=== PATIENT | female | born 1970 | race African-American/Black ===

== ENCOUNTER 2020-08-04 12:04 | Day surgery (SDC) | payer OTHER, SELFPAY ==
--- NOTE | 2020-08-03 13:21 | P.CONAN_ITS ---
Documented by User: Heidi Busch 08/03/20 14:19 HPI - Anesthesia Eval Consult details Narrative: 49yo F for Colonoscopy [facility] Past Medical History Medical History Hyperlipidemia Hypertension Type II diabetes mellitus Surgical History Surgical History History of section Social History Social History Smoking Status: Never smoker Second Hand Smoke Exposure: No Use of substances other than those prescribed or required for medical reasons: No Advance Directives: No Advance Directives Information Provided: Yes Advance Directives on File: No Narrative Narrative: 2019 w/u for chest pain with negative stress and Echo. Meds Allergies Allergy/AdvReac Type Severity Reaction Status Date / Time No Known Allergies Allergy Unverified 06/25/20 17:25 Home Medications Medication Instructions Recorded Confirmed Type acetaminophen 650 mg PO Q4H PRN 08/03/20 08/03/20 History atorvastatin 1 tab PO DAILY 08/03/20 08/03/20 History cholecalciferol (vitamin D3) 1 cap PO DAILY 08/03/20 08/03/20 History [Vitamin D3] lancets [FreeStyle Lancets] 08/03/20 08/03/20 History losartan 25 mg PO DAILY 08/03/20 08/03/20 History phentermine 1 cap PO DAILY 08/03/20 08/03/20 History Exam Exam Date and Time: August 03, 2020 1321 Pertinent Lab Results Pertinent Lab Results: Laboratory Tests 06/09/20 06/09/20 11:17 11:17 WBC 7.4 Hgb 12.4 Hct 41.2 Plt Count 300 Sodium 144 Potassium 4.1 Chloride 107 BUN 16 Creatinine 0.84 Narrative Narrative: Echo 07/2019: Nml LV sys function, Gr 1 DD, Valves wnl, RV sys pressure was nml, no evidence of pericardial effusion. EKG 2019: SR@69 MIBI 07/2019: Nml perfusion, gated ef 70%, no transient ischemia dilation Documented by User: Silvia Wall 08/04/20 12:37 PMFSH Past Medical History Medical History Hyperlipidemia Hypertension Type II diabetes mellitus Surgical History Surgical History History of section Social History Social History Smoking Status: Never smoker Second Hand Smoke Exposure: No Use of substances other than those prescribed or required for medical reasons: No Advance Directives: No Advance Directives Information Provided: Yes Advance Directives on File: No Meds Allergies Allergy/AdvReac Type Severity Reaction Status Date / Time No Known Allergies Allergy Unverified 06/25/20 17:25 Home Medications Medication Instructions Recorded Confirmed Type acetaminophen 650 mg PO Q4H PRN 08/03/20 08/03/20 History atorvastatin 1 tab PO DAILY 08/03/20 08/03/20 History cholecalciferol (vitamin D3) 1 cap PO DAILY 08/03/20 08/03/20 History [Vitamin D3] lancets [FreeStyle Lancets] 08/03/20 08/03/20 History losartan 25 mg PO DAILY 08/03/20 08/03/20 History phentermine 1 cap PO DAILY 08/03/20 08/03/20 History Exam Airway Mallampati Class: I TM Dist: >3cm Neck ROM: Full Heart: RRR Lungs: CTA Assessment and Plan Assessment Anesthesia Assessment: Anesthesia Plan Discussed and Chart Reviewed Final Anesthetic Review NPO: Yes ASA Class: II Final Preanesthetic Review: Meds/Allgs Chart Reviewed, Consent Obtained/Reviewed and Anes Risks/Benef Reviewed Patient Risk: Intermediate Procedure Risk: Low Anesthetic Plan Anesthetic Plan: MAC: Disposition: Standard PACU
[2020-08-03 16:39] VITALS: BMI 39.0
--- NOTE | 2020-08-04 12:24 | MHC.SHP ---
Pre-Procedural Eval Section A The patient is an INPATIENT: No Changes since office visit: No Cold of Flu in the past 2 weeks, No New Medical Problems, No Changes in Medication and No Patient answered all questions The History & Physical has been completed within 30 days and I have reviewed it.: Yes Section B Chief Complaint: screening Allergies: Allergies Allergy/AdvReac Type Severity Reaction Status Date / Time No Known Allergies Allergy Unverified 06/25/20 17:25 Plan Patient has been examined and remains a candidate for the planned procedure
[2020-08-04 12:29] VITALS: BP 115/80; PULSE 99; RESP 16; TEMP 36.5; O2SAT 100
[2020-08-04] MEDS: Lactated Ringers 1,000 ML 100 ML IVCONT (12:43)
[2020-08-04 12:46] LABS: Glucose, Whole Blood 97 mg/dL (60-115)
[2020-08-04 13:10] VITALS: BP 109/68; PULSE 90; RESP 16; TEMP 36; O2SAT 99
--- NOTE | 2020-08-04 13:11 | PM.OP ---
Brief Operative Note Date of procedure: 08/04/20 Pre-op diagnosis: screening Post-op diagnosis: other (colon polyp) Procedure: colonoscopy Surgeon: Pablo Arreaga Anesthesia: MAC Estimated blood loss (mL): 1 Pathology: other (polyp 20 cm) Condition: stable Disposition: PACU
[2020-08-04 13:25] VITALS: BP 125/106; PULSE 90; RESP 16; O2SAT 99
[2020-08-04 13:37] VITALS: BP 127/92; PULSE 80; RESP 16; TEMP 36; O2SAT 99
--- NOTE | 2020-08-04 16:58 | OP_ITS ---
SURGEON: Pabol Arreaga MD INDICATIONS: Colon cancer screening. PREOPERATIVE DIAGNOSIS: POSTOPERATIVE DIAGNOSIS: PROCEDURE PERFORMED: Colonoscopy to the terminal ileum with biopsy. ESTIMATED BLOOD LOSS: COMPLICATIONS: ANESTHESIA: ASSISTANTS: SPECIMENS: MEDICATIONS: Monitored anesthesia care. DESCRIPTION OF PROCEDURE: History and physical performed. The risks and benefits of the procedure were explained to the patient. Informed consent was obtained. The patient was placed in the left lateral decubitus position. A digital rectal exam was performed and was found to be normal. The Olympus pediatric video colonoscope was introduced into the rectum and advanced to the cecum without difficulty. The cecum was identified by transillumination, palpation, and identification of ileocecal valve. Examination was performed and the scope was removed. She tolerated the procedure well and was taken to recovery area in stable condition. FINDINGS: The terminal ileum was normal. The visualized colonic mucosa was normal. The quality of prep was good. A single polyp in the sigmoid at 20 cm measuring less than 5 mm was removed with biopsy forceps. No other polyps were identified. Retroflexed examination showed small internal hemorrhoids. IMPRESSION: Colon polyp. RECOMMENDATION: Follow up the biopsy results. MD ANNABELLA Johnson/TOMMY / [id number]
== END 2020-08-04 14:41 | disposition home or self-care (01) ==
PROVIDERS: PCP Internal Medicine; Visit Provider Internal Medicine Gastroenterology
PROC: 0DJD8ZZ Inspection of Lower Intestinal Tract, Via Natural or Artificial Opening Endoscopic (ICD-10-PCS; CPT 45378; principal; 2020-08-04 13:00)
DX: Z12.11 Encounter for screening for malignant neoplasm of colon (principal); D12.5 Benign neoplasm of sigmoid colon; K64.8 Other hemorrhoids; I10 Essential (primary) hypertension; E11.9 Type 2 diabetes mellitus without complications; E78.5 Hyperlipidemia, unspecified; Z79.899 Other long term (current) drug therapy
CPT/HCPCS: 45380; 82947; 88305

== ENCOUNTER 2020-08-08 14:35 | Inpatient (IN) | payer OTHER, SELFPAY ==
[2020-08-08 15:01] VITALS: BP 142/102; PULSE 100; RESP 18; TEMP 36.4; O2SAT 99; BMI 37.2
[2020-08-08 15:05] VITALS: BP 142/102; PULSE 100; RESP 18; TEMP 36.4; O2SAT 99
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
[2020-08-08 15:58] LABS: MANUAL DIFF FLAG NO
[2020-08-08 15:59] LABS: Basophils Percent Auto 0.4 % (0-2); Eosinophils Absolute Auto 0.1 X10*3/uL (0.0-0.4); Eosinophils Percent Auto 0.7 % (0-4); Hematocrit 44.6 % (37-47); Hemoglobin 14.1 g/dl (12.0-16.0); Imm Gran Abs Auto 0.02 X10*3/uL (0.00-0.03); Imm Gran Pct Auto 0.2 % (0.0-0.4); Lymphocytes Percent Auto 36.2 % (20-40); Mean Corpuscular HGB Conc 31.6 g/dl (31.0-35.0); Mean Corpuscular Hemoglobin 25.7 pg (27.0-33.0); Mean Corpuscular Volume 81.2 fL (80-98); Mean Platelet Volume 9.2 fL (9.4-12.3); Monocytes Absolute Auto 0.6 X10*3/uL (0.1-1.2); Monocytes Percent Auto 5.5 % (2-11); Neutrophils Absolute Auto 6.3 X10*3/uL (2.0-8.3); Platelet Count 381 X10*3/uL (160-400); Red Blood Count 5.49 X10*6/uL (4.20-5.50); Red Cell Distribution Width 15.1 % (11.0-16.0); White Blood Count 11.1 X10*3/uL (4.8-10.8)
[2020-08-08 16:23] LABS: Anion Gap 17 (12-20); Blood Urea Nitrogen 7 mg/dL (9-16); Calcium 9.9 mg/dL (8.4-10.2); Carbon Dioxide 27 mmol/L (22-29); Chloride 99 mmol/L (96-108); Estimated Glomerular Filt Rate 51; Glucose Random 109 mg/dL (60-115); Potassium 4.2 mmol/l (3.3-5.1); Sodium 139 mmol/L (135-145)
--- NOTE | 2020-08-08 16:40 | PC.NURSE ---
MICHELLE faxed and called.
[2020-08-08 17:20] LABS: Amphetamine Screen Urine Not Detected (Not Detect); Barbiturates, Urine Not Detected (Not Detect); Benzodiazepines Screen Urine Not Detected (Not Detect); Cannabinoid Screen Urine Not Detected (Not Detect); Cocaine Screen Urine Not Detected (Not Detect); Opiate Screen Urine Not Detected (Not Detect); Phencyclidine Screen Urine Not Detected (Not Detect)
--- NOTE | 2020-08-08 19:02 | PC.NURSE ---
Report received. Pt currently sitting in chair in room. Calm, cooperative. No complaints at this time.
--- NOTE | 2020-08-08 20:51 | PC.NURSE ---
Pt notified by N that she will be a section 12 bed search. Tearful, upset. Currently getting phone numbers from her phone to make phone calls.
--- NOTE | 2020-08-08 23:12 | PC.NURSE ---
change of shift report received from Isidra Zuniga. pt is in her room visible on the monitor.
[2020-08-08 23:19] VITALS: BP 104/65; PULSE 75; RESP 16; TEMP 36.9; O2SAT 100
--- NOTE | 2020-08-08 23:50 | PC.NURSE ---
PT STATES SHE IS NOT S1 OR H1 AT THIS TIME. PT STATES FOR 2 WEEKS SHE HAS NOT BEEN FEELING WELL AND SINCE MONDAY LACK OF SLEEP AND NUTRITION. PT AT THIS TIME DENIES S1 OR H1. PT IS IN HER ROOM TRYING TO FALL ASLEEP. NEEDS AT BEDSIDE. SKIN WARM AND DRY. PT IS A DIABETIC TYPE 2.
--- NOTE | 2020-08-09 01:40 | PC.NURSE ---
pt awake steady gait. pt in the shower. pt is ao calm and cooperative.
[2020-08-09 06:29] VITALS: BP 101/67; PULSE 85; RESP 16; TEMP 36.3; O2SAT 100
--- NOTE | 2020-08-09 06:59 | PC.NURSE ---
Report received. PT sleeping, respirations even and unlabored, in no apparent distress. Pt is inpatient bedsearch.
[2020-08-09 07:58] LABS: Glucose, Whole Blood 73 mg/dL (60-115)
[2020-08-09 08:52] VITALS: BP 99/72; PULSE 84; RESP 18; TEMP 36.2; O2SAT 99
--- NOTE | 2020-08-09 08:56 | PC.NURSE ---
Pt refusing morning medication at this time, states I haven't eaten since monday, I don't want my sugar to get too low Medication education provided, pt continues to decline.
[2020-08-09] MEDS: Acetaminophen 325 MG TABLET 650 MG PO (14:06)
[2020-08-09 14:17] VITALS: BP 94/64; PULSE 89; TEMP 36.4; O2SAT 100
--- NOTE | 2020-08-09 16:03 | PC.NURSE ---
PT resting, asked when she will be able to leave. Pt denies SI/HI at this time, states she was just overwhelmed and sitting here is not helping with her neighbors. Plan of care explained. Pt understanding.
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
[2020-08-09 21:02] LABS: Glucose, Whole Blood 86 mg/dL (60-115)
--- NOTE | 2020-08-09 23:25 | PC.NURSE ---
Contacted [facility] for PT to be seen for MSU. [facility] stated they would try to get someone here tonight or tomorrow morning.
--- NOTE | 2020-08-10 05:53 | PC.NURSE ---
PT asking when she will be seen by N. Upset and crying because she will be missing her job interview this morning at 0900. Nurse to call N to get status on MSU.
--- NOTE | 2020-08-10 07:18 | PC.NURSE ---
Report received from Sulaiman rn- pt awake, adamantly denies SI, states it was an impulsive act and that she woulkd like to return home.
[2020-08-10 09:22] VITALS: BP 112/71; PULSE 90; RESP 17; TEMP 36.6; O2SAT 98
[2020-08-10] MEDS: Atorvastatin Calcium 10 MG TABLET PO (09:30)
--- NOTE | 2020-08-10 10:02 | PC.NURSE ---
Pt declined metformin, stating that she is attempting to control blood sugar w/ diet. A Ellyn aware. Reviewed vitals w/ A Ellyn- metolprolol and diovan held as ordered.
[2020-08-10 10:03] VITALS: BP 112/71; PULSE 90
[2020-08-10 10:04] VITALS: BP 112/71; PULSE 90
--- NOTE | 2020-08-10 13:17 | PC.NURSE ---
report given to CHRISTOS Moser
[2020-08-10 14:32] LABS: SARS COV2 PCR INHOUSE NEGATIVE (Negative)
[2020-08-10 16:22] VITALS: BP 110/77; PULSE 100; RESP 20; TEMP 36.8; O2SAT 99
[2020-08-10] MEDS: Magnesium Hydrox/Alum Hydrox 30 ML ORAL.SUSP PO (18:50)
--- NOTE | 2020-08-10 19:03 | PC.NURSE ---
Care team in to transfer pt to M5.
--- NOTE | 2020-08-10 19:31 | MHC.CARE ---
CARE team met with patient in [facility] to facilitate transfer/admission to . Patient is being admitted voluntarily and signed CV. Patient expressed feeling it was unfair and unjust that she could not wait to complete the CV until after she was on M5 (and in particular, that the alternative would be transferring with a section 12). CARE team did explain that if patient were to be admitted with a 12 that she would still be given the opportunity to review and potentially complete a CV. Patient asked to consult with a loved one before signing and called her friend but they did not rock picker and she left a message. Ultimately patient chose to sign CV after reviewing verbally with CARE team and reading the document in full, but wants to talk to her friend about it as soon as they call her back. Would like the opportunity to speak more about the process with someone, and is upset about how she has been treated the past few days. Reports she gave permission for [facility] to speak to one person but they called more family members. Reports distress that people are making decisions about her without involving her. Talked about history of discrimination for the past 18 years that she has been in this country, and gave examples. Patient was upset that a [employer] security consultant was used to bring her from ED to , and wanted to walk. CARE team explained the escort process and that it is for her safety, as well as being standard for every patient and not based on any particular concerns about her specifically. Patient did cooperate with transfer but was tearful.
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
[2020-08-11 06:05] VITALS: BP 121/78; PULSE 91; RESP 18; TEMP 36.2
[2020-08-11 08:14] LABS: Glucose, Whole Blood 107 mg/dL (60-115)
[2020-08-11 08:18] LABS: Estimated Average Glucose 134 mg/dL; Hemoglobin A1c % 6.3 %
[2020-08-11 08:40] LABS: Cholesterol 182 mg/dL; HDL Cholesterol 53 mg/dL; LDL Cholesterol Calculated 116 mg/dl; Triglycerides 66 mg/dL
[2020-08-11] MEDS: Milk of Magnesia 30 ML ORAL.SUSP PO (14:19)
[2020-08-11 17:39] LABS: Glucose, Whole Blood 116 mg/dL (60-115)
[2020-08-11 18:00] VITALS: BP 121/65; PULSE 85; TEMP 36.2
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
[2020-08-12 05:30] VITALS: BP 106/51; PULSE 83; RESP 16; TEMP 36.9
[2020-08-12 06:26] LABS: Glucose, Whole Blood 86 mg/dL (60-115)
[2020-08-12] MEDS: Magnesium Hydrox/Alum Hydrox 30 ML ORAL.SUSP PO (11:38)
[2020-08-12 18:00] VITALS: BP 115/58; PULSE 92; TEMP 36.6
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
[2020-08-13 06:12] VITALS: BP 110/55; PULSE 83; RESP 18; TEMP 36.6; O2SAT 98
[2020-08-13 06:23] LABS: Glucose, Whole Blood 100 mg/dL (60-115)
[2020-08-13] MEDS: Sertraline HCL 25 MG TABLET PO (10:15)
[2020-08-13] MEDS: Flu Vacc QS2020-21(6mos up)/PF 0.5 ML SYRINGE IM (13:21)
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
== END 2020-08-13 13:40 | disposition home or self-care (01) | DRG 755 ==
LOC: HO.ED 08-10 16:42 → HO.PM5 08-10 18:27
PROVIDERS: Nurse Practitioner Family; Physician Assistant Medical; Admitting Provider Psychiatry & Neurology Psychiatry; Emergency Provider Emergency Medicine; Visit Provider Psychiatry & Neurology Psychiatry
DX: F43.10 Post-traumatic stress disorder, unspecified (principal); R45.851 Suicidal ideations; E11.9 Type 2 diabetes mellitus without complications; E78.5 Hyperlipidemia, unspecified; Z23 Encounter for immunization; Z20.828 Contact with and (suspected) exposure to other viral communicable diseases; Z91.5 Personal history of self-harm; Z79.84 Long term (current) use of oral hypoglycemic drugs; Z79.899 Other long term (current) drug therapy
CPT/HCPCS: 36415; 80048; 80061; 80307; 82947; 83036; 85025; 90686; 90792; 99232; 99239; 99285; U0003

== ENCOUNTER 2020-08-31 11:12 | Outpatient (REF) | payer OTHER, SELFPAY ==
--- NOTE | 2020-08-31 11:16 | MM_ITS ---
EXAMINATION: MM SCREENING DIGITAL BREAST TOMOSYNTHESIS, BILATERAL CLINICAL INFORMATION: Screening. Asymptomatic. The lifetime risk of breast cancer based on the Tyrer-Cuzick Model is 14%. COMPARISON: Mammography: None available TECHNIQUE: Digital breast tomosynthesis is performed in both the craniocaudal and mediolateral oblique views along with computer-aided detection (CAD). Synthesized 2D images are generated from the tomosynthesis. FINDINGS: There are scattered areas of fibroglandular density (ACR BI-RADS breast composition Category b). There are no significant masses, abnormal calcifications, or other abnormalities. MM/MM tomosynthesis screening BI IMPRESSION: No mammographic evidence of malignancy. ASSESSMENT: BI-RADS 1: Negative RECOMMENDATION: Routine annual mammography screening. This patient's information was entered into a reminder system with a target due date for their next mammogram.
== END 2020-08-31 11:13 | disposition home or self-care (01) ==
LOC: HO.MAMMO 11:12
PROVIDERS: PCP Internal Medicine; Visit Provider Internal Medicine
DX: Z12.31 Encounter for screening mammogram for malignant neoplasm of breast (principal)
CPT/HCPCS: 77063; 77067

== ENCOUNTER → 2020-09-23 09:19 | Outpatient (BNVA) | payer OTHER, SELFPAY | PROVIDERS: Visit Provider Student in an Organized Health Care Education/Training Program | DX: G56.03 Carpal tunnel syndrome, bilateral upper limbs (principal) | CPT/HCPCS: 99202 ==

== ENCOUNTER 2020-09-25 16:42 | Outpatient (REF) | payer OTHER, SELFPAY | END 2020-09-25 16:43 | disposition home or self-care (01) | LOC: HO.LAB 16:42 | PROVIDERS: Physician Assistant Medical; Visit Provider Internal Medicine | DX: Z20.828 Contact with and (suspected) exposure to other viral communicable diseases (principal) | CPT/HCPCS: U0003 ==

== ENCOUNTER → 2020-10-20 12:39 | Outpatient (BNVA) | payer OTHER, SELFPAY | PROVIDERS: PCP Internal Medicine; Visit Provider Orthopaedic Surgery | DX: M18.12 Unilateral primary osteoarthritis of first carpometacarpal joint, left hand (principal); R20.0 Anesthesia of skin; R20.2 Paresthesia of skin | CPT/HCPCS: 20605; 99202; J1020; J1100 ==

== ENCOUNTER 2021-03-24 12:19 | Outpatient (REF) | payer OTHER, SELFPAY | END 2021-03-24 12:20 | disposition home or self-care (01) | LOC: HO.LAB 12:19 | PROVIDERS: PCP Internal Medicine; Visit Provider Internal Medicine | DX: Z20.822 Contact with and (suspected) exposure to COVID-19 (principal) | CPT/HCPCS: C9803; U0003; U0005 ==

== ENCOUNTER 2021-07-06 07:41 | Outpatient (REF) | payer OTHER, SELFPAY ==
[2021-07-06 08:46] LABS: MANUAL DIFF FLAG NO
[2021-07-06 08:52] LABS: Basophils Percent Auto 0.4 % (0-2); Eosinophils Absolute Auto 0.2 X10*3/uL (0.0-0.4); Eosinophils Percent Auto 2.5 % (0-4); Hematocrit 40.3 % (37-47); Hemoglobin 12.7 g/dl (12.0-16.0); Imm Gran Abs Auto 0.02 X10*3/uL (0.00-0.03); Imm Gran Pct Auto 0.3 % (0.0-0.4); Lymphocytes Absolute Auto 3.3 X10*3/uL (1.2-4.9); Lymphocytes Percent Auto 41.9 % (20-40); Mean Corpuscular HGB Conc 31.5 g/dl (31.0-35.0); Mean Corpuscular Hemoglobin 25.6 pg (27.0-33.0); Mean Corpuscular Volume 81.3 fL (80-98); Monocytes Absolute Auto 0.5 X10*3/uL (0.1-1.2); Monocytes Percent Auto 6.3 % (2-11); Neutrophils Absolute Auto 3.8 X10*3/uL (2.0-8.3); Neutrophils Percent Auto 48.6 % (45-73); Platelet Count 281 X10*3/uL (160-400); Red Blood Count 4.96 X10*6/uL (4.20-5.50); Red Cell Distribution Width 16.1 % (11.0-16.0); White Blood Count 7.9 X10*3/uL (4.8-10.8)
[2021-07-06 09:16] LABS: Estimated Average Glucose 126 mg/dL
[2021-07-06 09:26] LABS: Alanine Aminotransferase 18 U/L (0-31); Albumin Level 3.9 g/dL (3.5-5.0); Alkaline Phosphatase 90 U/L (39-117); Anion Gap 12 (12-20); Aspartate Amino Transferase 16 U/L (5-31); Bilirubin Total 0.4 mg/dL (0.0-1.0); Blood Urea Nitrogen 11 mg/dL (9-16); Calcium 9.3 mg/dL (8.4-10.2); Carbon Dioxide 24 mmol/L (22-29); Chloride 108 mmol/L (96-108); Cholesterol 220 mg/dL; Estimated Glomerular Filt Rate > 60; Glucose Random 103 mg/dL (60-115); HDL Cholesterol 74 mg/dL; LDL Cholesterol Calculated 137 mg/dl; Potassium 4.2 mmol/L (3.3-5.1); Sodium 140 mmol/L (135-145); Total Protein 6.9 g/dL (6.5-8.0); Triglycerides 48 mg/dL
[2021-07-06 09:31] LABS: Creatinine Urine 194.57 mg/dL; Microalbum/Creatinine Ratio Ur 3.5 ug/mg cr
== END 2021-07-06 07:42 | disposition home or self-care (01) ==
LOC: HO.LAB 07:41
PROVIDERS: PCP Internal Medicine; Visit Provider Internal Medicine
DX: E11.9 Type 2 diabetes mellitus without complications (principal); E78.00 Pure hypercholesterolemia, unspecified; I10 Essential (primary) hypertension; G56.01 Carpal tunnel syndrome, right upper limb
CPT/HCPCS: 36415; 80053; 80061; 82043; 83036; 84443; 85025

== ENCOUNTER 2021-07-07 09:00 | Outpatient (REF) | payer OTHER, SELFPAY ==
[2021-07-07 10:17] LABS: Estimated Average Glucose 128 mg/dL; Hemoglobin A1c % 6.1 %
[2021-07-07 10:56] LABS: Alanine Aminotransferase 18 U/L (0-31); Alkaline Phosphatase 89 U/L (39-117); Anion Gap 10 (12-20); Aspartate Amino Transferase 16 U/L (5-31); Bilirubin Total 0.2 mg/dL (0.0-1.0); Blood Urea Nitrogen 12 mg/dL (9-16); Calcium 9.4 mg/dL (8.4-10.2); Carbon Dioxide 28 mmol/L (22-29); Chloride 107 mmol/L (96-108); Cholesterol 218 mg/dL; Estimated Glomerular Filt Rate > 60; Glucose Random 90 mg/dL (60-115); HDL Cholesterol 69 mg/dL; LDL Cholesterol Calculated 137 mg/dl; Potassium 4.7 mmol/L (3.3-5.1); Sodium 140 mmol/L (135-145); Triglycerides 61 mg/dL
[2021-07-07 11:10] LABS: HBS Num1 113.76 mIU/mL (0-7.99); ~Hepatitis B Surface Antibody REACTIVE (Nonreactive)
[2021-07-10 13:31] LABS: TS Negative Control Passed; TS Panel A 38; TS Panel B 46; TS Positive Control Passed; TSpotTB POSITIVE (SeeBelow)
== END 2021-07-07 09:01 | disposition home or self-care (01) ==
LOC: HO.LAB 09:00
PROVIDERS: PCP Internal Medicine; Visit Provider Internal Medicine
DX: Z00.00 Encounter for general adult medical examination without abnormal findings (principal); E11.9 Type 2 diabetes mellitus without complications; E78.00 Pure hypercholesterolemia, unspecified; I10 Essential (primary) hypertension
CPT/HCPCS: 36415; 80053; 80061; 83036; 86481; 86706

== ENCOUNTER 2021-10-05 16:08 | Outpatient (REF) | payer OTHER, SELFPAY ==
--- NOTE | ~2021-10-05 | MM_ITS ---
EXAMINATION: MM SCREENING DIGITAL BREAST TOMOSYNTHESIS, BILATERAL CLINICAL INFORMATION: Screening. Asymptomatic. The lifetime risk of breast cancer based on the Tyrer-Cuzick Model is 17%. COMPARISON: Mammography: 08/31/2020; Outside mammography 12/27/2018, 10/17/2016 ([facility]). TECHNIQUE: Digital breast tomosynthesis is performed in both the craniocaudal and mediolateral oblique views along with computer-aided detection (CAD). Synthesized 2D images are generated from the tomosynthesis. Additional bilateral CC views are provided. FINDINGS: There are scattered areas of fibroglandular density (ACR BI-RADS breast composition Category b). There are no significant masses, abnormal calcifications, or other abnormalities. Breast tissue composition borders on predominantly fatty. Background stromal and fibroglandular densities are stable. The axilla and skin contours are unremarkable. No significant changes. MM/MM tomosynthesis screening BI IMPRESSION: No mammographic evidence of malignancy. ASSESSMENT: BI-RADS 1: Negative RECOMMENDATION: Routine annual mammography screening. This patient's information was entered into a reminder system with a target due date for their next mammogram.
== END 2021-10-05 16:09 | disposition home or self-care (01) ==
LOC: HO.MAMMO 16:08
PROVIDERS: Visit Provider Internal Medicine
DX: Z12.31 Encounter for screening mammogram for malignant neoplasm of breast (principal)
CPT/HCPCS: 77063; 77067

== ENCOUNTER 2022-01-19 08:09 | Outpatient (REF) | payer OTHER, SELFPAY ==
[2022-01-19 08:53] LABS: Estimated Average Glucose 137 mg/dL; Hemoglobin A1c % 6.4 %
[2022-01-19 09:26] LABS: Alanine Aminotransferase 21 U/L (0-31); Albumin Level 3.8 g/dL (3.5-5.0); Alkaline Phosphatase 91 U/L (39-117); Anion Gap 10 (12-20); Aspartate Amino Transferase 18 U/L (5-31); Bilirubin Total 0.2 mg/dL (0.0-1.0); Blood Urea Nitrogen 13 mg/dL (9-16); Calcium 9.8 mg/dL (8.4-10.2); Carbon Dioxide 29 mmol/L (22-29); Chloride 108 mmol/L (96-108); Cholesterol 192 mg/dL; Estimated Glomerular Filt Rate > 60; Glucose Random 117 mg/dL (60-115); HDL Cholesterol 55 mg/dL; LDL Cholesterol Calculated 128 mg/dl; Potassium 4.9 mmol/L (3.3-5.1); Sodium 142 mmol/L (135-145); Total Protein 7.1 g/dL (6.5-8.0); Triglycerides 47 mg/dL
== END 2022-01-19 08:10 | disposition home or self-care (01) ==
LOC: HO.LAB 08:09
PROVIDERS: PCP Internal Medicine; Visit Provider Internal Medicine
DX: E11.9 Type 2 diabetes mellitus without complications (principal); E78.00 Pure hypercholesterolemia, unspecified; I10 Essential (primary) hypertension; K21.9 Gastro-esophageal reflux disease without esophagitis
CPT/HCPCS: 36415; 80053; 80061; 83036

== ENCOUNTER 2022-03-08 15:54 | Outpatient (REF) | payer OTHER, SELFPAY ==
--- NOTE | ~2022-03-08 | XR_ITS ---
EXAMINATION: XR FOOT, LEFT CLINICAL INFORMATION: Pain. COMPARISON: No similar priors. TECHNIQUE: AP, lateral, and oblique views of the left foot. FINDINGS: No acute fracture or malalignment. Mild multifocal degenerative osteoarthritis in the hind and mid foot. No erosions or chondrocalcinosis. Small calcaneus spurs. Diffuse soft tissue swelling. XR/XR foot LT min 3V IMPRESSION: No acute osseous abnormalities. Mild multifocal degenerative osteoarthritis. Nonspecific diffuse soft tissue swelling.
[2022-03-08 16:15] LABS: MANUAL DIFF FLAG NO
[2022-03-08 17:18] LABS: Basophils Percent Auto 0.4 % (0-2); Eosinophils Absolute Auto 0.2 X10*3/uL (0.0-0.4); Hematocrit 38.7 % (37.0-47.0); Hemoglobin 11.7 g/dl (12.0-16.0); Imm Gran Abs Auto 0.01 X10*3/uL (0.00-0.03); Imm Gran Pct Auto 0.1 % (0.0-0.4); Lymphocytes Absolute Auto 4.5 X10*3/uL (1.2-4.9); Mean Corpuscular HGB Conc 30.2 g/dl (31.0-35.0); Mean Corpuscular Hemoglobin 24.9 pg (27.0-33.0); Mean Corpuscular Volume 82.5 fL (80.0-98.0); Mean Platelet Volume 9.9 fL (9.4-12.3); Monocytes Absolute Auto 0.6 X10*3/uL (0.1-1.2); Monocytes Percent Auto 6.2 % (2-11); Neutrophils Absolute Auto 3.9 x10*3/uL (2.0-8.3); Neutrophils Percent Auto 42.3 % (45-73); Platelet Count 266 X10*3/uL (160-400); Red Blood Count 4.69 X10*6/uL (4.20-5.50); Red Cell Distribution Width 15.9 % (11.0-16.0); White Blood Count 9.1 X10*3/uL (4.8-10.8)
[2022-03-08 17:49] LABS: Alanine Aminotransferase 16 U/L (0-31); Albumin Level 3.7 g/dL (3.5-5.0); Alkaline Phosphatase 81 U/L (39-117); Anion Gap 9 (12-20); Aspartate Amino Transferase 16 U/L (5-31); Bilirubin Total 0.3 mg/dL (0.0-1.0); Blood Urea Nitrogen 10 mg/dL (9-16); Calcium 9.4 mg/dL (8.4-10.2); Carbon Dioxide 26 mmol/L (22-29); Chloride 106 mmol/L (96-108); Estimated Glomerular Filt Rate > 60; Glucose Random 78 mg/dL (60-115); Potassium 3.9 mmol/L (3.3-5.1); Sodium 137 mmol/L (135-145); Total Protein 6.8 g/dL (6.5-8.0)
[2022-03-08 17:55] LABS: Estimated Average Glucose 134 mg/dL; Hemoglobin A1c % 6.3 %
[2022-03-08 18:16] LABS: Creatinine Urine 31.85 mg/dL; Microalbumin Urine < 5.0 mg/L
== END 2022-03-08 15:55 | disposition home or self-care (01) ==
LOC: HO.LAB 15:54
PROVIDERS: PCP Internal Medicine; Visit Provider Internal Medicine
DX: M25.572 Pain in left ankle and joints of left foot (principal); E11.9 Type 2 diabetes mellitus without complications; I10 Essential (primary) hypertension; R05.9 Cough, unspecified; R07.89 Other chest pain
CPT/HCPCS: 36415; 73630; 80053; 82043; 83036; 85025

== ENCOUNTER 2022-07-13 14:52 | Outpatient (REF) | payer OTHER, SELFPAY ==
[2022-07-13 16:19] LABS: Estimated Average Glucose 137 mg/dL; Hemoglobin A1c % 6.4 %
[2022-07-13 16:33] LABS: Alanine Aminotransferase 23 U/L (0-31); Albumin Level 4.1 g/dL (3.5-5.0); Alkaline Phosphatase 102 U/L (39-117); Anion Gap 17 (12-20); Aspartate Amino Transferase 15 U/L (5-31); Bilirubin Total < 0.2 mg/dL (0.0-1.0); Blood Urea Nitrogen 15 mg/dL (9-16); Calcium 9.3 mg/dL (8.4-10.2); Carbon Dioxide 25 mmol/L (22-29); Chloride 105 mmol/L (96-108); Cholesterol 205 mg/dL; Estimated Glomerular Filt Rate > 60; Glucose Random 88 mg/dL (60-115); HDL Cholesterol 61 mg/dL; LDL Cholesterol Calculated 134 mg/dl; Potassium 4.6 mmol/L (3.3-5.1); Sodium 142 mmol/L (135-145); Total Protein 7.2 g/dL (6.5-8.0); Triglycerides 53 mg/dL
== END 2022-07-13 14:53 | disposition home or self-care (01) ==
LOC: HO.LAB 14:52
PROVIDERS: PCP Internal Medicine; Visit Provider Internal Medicine
DX: Z00.00 Encounter for general adult medical examination without abnormal findings (principal); I10 Essential (primary) hypertension; E78.00 Pure hypercholesterolemia, unspecified; E11.9 Type 2 diabetes mellitus without complications
CPT/HCPCS: 36415; 80053; 80061; 83036

== ENCOUNTER 2022-08-15 10:44 | Outpatient (REF) | payer OTHER, SELFPAY ==
--- NOTE | ~2022-08-15 | XR_ITS ---
EXAMINATION: XR HAND, LEFT CLINICAL INFORMATION: Pain. COMPARISON: None TECHNIQUE: PA, lateral, and oblique views of the left hand. FINDINGS: No displaced fractures or subluxation. There is mild to moderate joint space narrowing with subcortical sclerosis on the first carpometacarpal joint. There is a well-corticated 2 mm portions fragment along the ulnar surface of the fourth DIP joint, likely an enthesophyte or sequela of a prior avulsion injury. No significant soft tissue abnormality. XR/XR hand LT min 3V IMPRESSION: 1. No acute fractures or subluxation. 2. Mild to moderate degenerative osteoarthritis of the first carpometacarpal joint. 3. A 2 mm osseous fragment adjacent to the ulnar surface of the fourth DIP joint, likely a degenerative enthesophyte or sequela of a prior avulsion injury. Correlate with point tenderness.
== END 2022-08-15 10:45 | disposition home or self-care (01) ==
LOC: HO.HOSX 10:44
PROVIDERS: Visit Provider Orthopaedic Surgery
DX: M79.642 Pain in left hand (principal)
CPT/HCPCS: 73130

== ENCOUNTER → 2022-08-16 08:54 | Outpatient (BNVA) | payer OTHER, SELFPAY | PROVIDERS: PCP Internal Medicine; Visit Provider Orthopaedic Surgery | DX: M18.12 Unilateral primary osteoarthritis of first carpometacarpal joint, left hand (principal); R20.0 Anesthesia of skin; R20.2 Paresthesia of skin | CPT/HCPCS: 99212; J1020 ==

== ENCOUNTER 2022-10-12 14:32 | Outpatient (REF) | payer OTHER, SELFPAY ==
--- NOTE | 2022-10-12 09:15 | EMG_ITS ---
Please see scanned EMG / Nerve Conduction Report. MTDD
== END 2022-10-12 14:33 | disposition home or self-care (01) ==
LOC: HO.NEURO 14:32
PROVIDERS: PCP Internal Medicine; Visit Provider Orthopaedic Surgery
DX: R20.0 Anesthesia of skin (principal); R20.2 Paresthesia of skin
CPT/HCPCS: 95885; 95913

== ENCOUNTER 2022-11-01 08:42 | Outpatient (REF) | payer OTHER, SELFPAY ==
[2022-11-01 10:02] LABS: Estimated Average Glucose 137 mg/dL; Hemoglobin A1c % 6.4 %
[2022-11-01 10:27] LABS: Alanine Aminotransferase 24 U/L (0-31); Albumin Level 3.8 g/dL (3.5-5.0); Alkaline Phosphatase 93 U/L (39-117); Anion Gap 13 (12-20); Aspartate Amino Transferase 21 U/L (5-31); Bilirubin Total 0.3 mg/dL (0.0-1.0); Blood Urea Nitrogen 15 mg/dL (9-16); Calcium 9.3 mg/dL (8.4-10.2); Carbon Dioxide 26 mmol/L (22-29); Chloride 106 mmol/L (96-108); Cholesterol 214 mg/dL; Estimated Glomerular Filt Rate > 60; Glucose Random 104 mg/dL (60-115); HDL Cholesterol 65 mg/dL; LDL Cholesterol Calculated 138 mg/dl; Potassium 4.4 mmol/L (3.3-5.1); Sodium 141 mmol/L (135-145); Total Protein 6.8 g/dL (6.5-8.0); Triglycerides 58 mg/dL
== END 2022-11-01 08:43 | disposition home or self-care (01) ==
LOC: HO.LAB 08:42
PROVIDERS: PCP Internal Medicine; Visit Provider Internal Medicine
DX: Z00.00 Encounter for general adult medical examination without abnormal findings (principal); E78.00 Pure hypercholesterolemia, unspecified; E11.9 Type 2 diabetes mellitus without complications; I10 Essential (primary) hypertension
CPT/HCPCS: 36415; 80053; 80061; 83036

== ENCOUNTER 2023-02-28 07:38 | Outpatient (REF) | payer OTHER, SELFPAY ==
[2023-02-28 08:34] LABS: Estimated Average Glucose 140 mg/dL; Hemoglobin A1c % 6.5 %
[2023-02-28 08:53] LABS: Alanine Aminotransferase 22 U/L (0-31); Albumin Level 3.8 g/dL (3.5-5.0); Alkaline Phosphatase 90 U/L (39-117); Anion Gap 12 (12-20); Aspartate Amino Transferase 17 U/L (5-31); Bilirubin Total 0.6 mg/dL (0.0-1.0); Blood Urea Nitrogen 12 mg/dL (9-16); Calcium 9.3 mg/dL (8.4-10.2); Carbon Dioxide 27 mmol/L (22-29); Chloride 105 mmol/L (96-108); Cholesterol 145 mg/dL; Estimated Glomerular Filt Rate > 60; Glucose Random 113 mg/dL (60-115); HDL Cholesterol 56 mg/dL; LDL Cholesterol Calculated 77 mg/dl; Potassium 3.9 mmol/L (3.3-5.1); Sodium 140 mmol/L (135-145); Total Protein 6.7 g/dL (6.5-8.0); Triglycerides 61 mg/dL
== END 2023-02-28 07:39 | disposition home or self-care (01) ==
LOC: HO.LAB 07:38
PROVIDERS: PCP Internal Medicine; Visit Provider Internal Medicine
DX: E11.9 Type 2 diabetes mellitus without complications (principal); E78.00 Pure hypercholesterolemia, unspecified; I10 Essential (primary) hypertension; M51.16 Intervertebral disc disorders with radiculopathy, lumbar region; Z91.148 Patient's other noncompliance with medication regimen for other reason
CPT/HCPCS: 36415; 80053; 80061; 83036

== ENCOUNTER 2023-04-28 10:31 | Emergency (ER) | payer OTHER, SELFPAY ==
--- NOTE | ~2023-04-28 | XR_ITS ---
EXAMINATION: XR ANKLE, LEFT CLINICAL INFORMATION: Pain. Fall. COMPARISON: Left foot x-ray February 2022 TECHNIQUE: AP, lateral, and mortise views of the left ankle. FINDINGS: Bone alignment is normal. No fracture or dislocation. Normal ankle mortise. Probable accessory ossicle adjacent to the cuboid bone similar to previous left foot x-ray. Calcaneal spurs. Lateral soft tissue swelling. XR/XR ankle LT min 3V IMPRESSION: Lateral soft tissue swelling. No fracture or dislocation.
--- NOTE | 2023-04-28 12:16 | ED.GENADULT ---
HPI - General Adult General Chief complaint: Extremity Injury, Lower Stated complaint: twisted ankle Time Seen by Provider: 04/28/23 13:29 Source: patient Mode of arrival: ambulatory Limitations: no limitations History of Present Illness HPI narrative: Patient is a 52-year-old female presenting with left ankle pain and swelling after slipping off a step stool yesterday. Denies any numbness or tingling to ankle or foot. Denies any other injury or pain. Has not taken any [id number] medications for her symptoms. MD complaint: left ankle pain Onset (ago): day(s) Location: lower extremity Radiation: non-radiation Severity: severe Quality: aching Pain Consistency: constant Relieving factors: rest Exacerbating factors: movement Associated symptoms: denies other symptoms Treatments prior to arrival: none Related Data Home Medications Medication Instructions Recorded Confirmed lancets 28 gauge (FreeStyle 08/03/20 09/23/20 Lancets) atorvastatin 10 mg tablet 1 tab PO DAILY 08/08/20 09/23/20 phentermine 37.5 mg capsule 1 cap PO DAILY 08/08/20 09/23/20 telmisartan 20 mg tablet 1 tab PO DAILY 08/08/20 09/23/20 Previous Rx's Medication Instructions Recorded lorazepam 0.5 mg tablet 0.5 mg PO BID PRN anxiety #10 tabs 08/13/20 Allergies Allergy/AdvReac Type Severity Reaction Status Date / Time No Known Allergies Allergy Verified 04/28/23 12:18 Review of Systems Review of Systems: As per HPI. Yes all other systems are reviewed and are negative Constitutional: Constitutional: Reports as per HPI [facility] Past Medical History Medical History Hyperlipidemia Hypertension Type II diabetes mellitus Surgical History History of section Family History Family History Father No problems noted. Father No problems noted. 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 Blood pressure elevated. Heart rate normal. Respiratory rate normal. Temperature normal. Oxygen saturation normal. Const General: cooperative, healthy appearing and no acute distress Orientation/consciousness: oriented to person, oriented to place, oriented to time and patient oriented x3 Limitations: no limitations HENMT Head: Yes normocephalic and Yes atraumatic Ears: external ears normal General nose exam: Normal external nose present Face and sinus: Yes face symmetric Mouth: oropharynx normal and moist mucous membranes Throat: Yes uvula midline Eyes Pupils: Equal, round and reactive pupils present Neck Neck: Yes normal visual inspection and Yes supple Resp Effort & Inspection: normal respiratory effort and able to speak in complete sentences Auscultation: clear to auscultation bilaterally Cardio Rate: regular rate Rhythm: regular rhythm Heart sounds: S1 normal heart sound present and S2 normal heart sound present GI Palpation (GI): Soft to palpation and nontender Auscultation: normoactive bowel sounds General: Yes no CVA tenderness Back/Spine/Pelvis Back: no CVA tenderness Skin General skin exam: elasticity normal and turgor normal Neuro General: oriented to person, oriented to place, oriented to time, patient oriented x3, moves all extremities, no focal motor deficits and CN's II-XI intact bilaterally Cranial nerves: Yes Equal, round and reactive pupils present Cognition (Neuro): normal cognition Extrem General: Yes full ROM, Yes no pedal edema and Yes no calf tenderness Left lower extremity: full ROM, normal capillary refill and ankle Details: tenderness Location: of the lateral malleolus, swelling Details: laterally and normal ROM; no warmth, no ecchymosis and no crepitus Psych Mental Status: mental status grossly normal Affect: normal affect Thought process: Normal thought process present Course Course Course Narrative: RME performed by Alethea Walton PA-C. Patient is a 52 year old assigned female at presenting to the emergency department with left ankle pain after rolling it yesterday. Imaging ordered. Patient placed back in the waiting room pending room availability and results. Medical Decision Making Medical Decision Making [facility] Narrative: Patient is a 52-year-old female presenting with left ankle pain and swelling after slipping off a step stool yesterday. On exam patient is awake, A+Ox3, VS WNL, afebrile, normal neurological exam without focal deficits, mild swelling to lateral aspect of left ankle with tenderness to lateral malleolus, 2+ DP P and PT pulses, full range of motion to ankle. Given reported symptoms and physical exam findings, initial differential includes left ankle strain, sprain, fracture. X-ray notable for no acute fracture . My interpretation is in agreement with the radiologist's interpretation. Feel patient is stable for discharge home, will order air cast, advised activity as tolerated. Instructed patient to use Tylenol and ibuprofen as needed for discomfort, follow-up with PCP. Will refer patient to Orthopedics for any ongoing symptoms. Advised patient to ice ankle and elevate while at rest. Return precautions discussed at bedside. Patient verbalized understanding of and agreement with plan. Differential Diagnosis Differential Diagnoses: The differential diagnosis associated with the presentation includes As per [facility]. Independent Interpretation I performed an independent interpretation of an: Plain X-Ray Interpretation: No acute fracture Radiology Impression Discussion of test interpretation with radiology: I have reviewed the radiologist's reading. Radiologist Impression: XR/XR ankle LT min 3V IMPRESSION: Lateral soft tissue swelling. No fracture or dislocation. External Record Review External record reviewed: Inpatient record, Office record and Outpatient record Discharge Plan Discharge Clinical Impression: Left ankle sprain Patient Disposition: Home, Self-Care Instructions: Ankle Sprain (DC), R.I.C.E. Treatment (ED) Additional Instructions: You have been evaluated in the emergency department today for ankle pain. Your evaluation did not find evidence of medical conditions requiring emergent intervention at this time. Please rest, ice, and elevate your ankle, and resume normal activities as tolerated. We recommend you take 600mg ibuprofen every 6 hours or 650mg Tylenol every 6 hours as needed for pain. If needed you can alternate these medications as they take 1 medication every 3 hours. For instance at noon take ibuprofen, then at 3:00 p.m. take Tylenol, then at 6:00 p.m. take ibuprofen. Please schedule an appointment for follow-up with your primary care provider this week. Return to the emergency department if you experience worsening pain, numbness, tingling, change of color in your foot, or any other concerning symptoms. If symptoms persist past the next 1-2 weeks, please follow-up with orthopedics. Prescriptions: No Action (DME) lancets [FreeStyle Lancets] 28 gauge misc topical DAILY telmisartan 20 mg tablet 1 tab PO DAILY phentermine 37.5 mg capsule 1 cap PO DAILY Hold Instructions: Resume on 10/09/20. may contribute to anxiety mood instability recommend not taking for now atorvastatin 10 mg tablet 1 tab PO DAILY lorazepam 0.5 mg tablet 0.5 mg PO BID PRN (Reason: anxiety) Qty: 10 0RF Referrals: [facility] [place] [facility] [place]Provider Group] Stand Alone Forms: Work/School Release
[2023-04-28 12:19] VITALS: BP 152/88; PULSE 73; RESP 18; TEMP 36.7; O2SAT 100; BMI 50.1
--- NOTE | 2023-04-28 13:04 | PC.NURSE ---
patient a&ox3, c/o lt ankle pain 05/18 pain, pt currently awaiting xr, call dickerson within reach, will continue to monitor.
[2023-04-28 15:12] VITALS: BP 151/78; PULSE 72; RESP 18; TEMP 36.7; O2SAT 98
--- NOTE | 2023-04-28 15:32 | PC.NURSE ---
tech applied air cast and pt had education on crutches.
== END 2023-04-28 15:33 | disposition home or self-care (01) ==
PROVIDERS: Emergency Provider Emergency Medicine; PCP Internal Medicine
DX: S93.402A Sprain of unspecified ligament of left ankle, initial encounter (principal); W17.89XA Other fall from one level to another, initial encounter; Y93.9 Activity, unspecified; Y92.9 Unspecified place or not applicable; Y99.9 Unspecified external cause status
CPT/HCPCS: 73610; 99283

== ENCOUNTER 2023-12-30 09:55 | Outpatient (REF) | payer SELFPAY ==
[2023-12-30 10:07] LABS: MANUAL DIFF FLAG NO
[2023-12-30 10:23] LABS: Basophils Percent Auto 0.4 % (0-2); Eosinophils Absolute Auto 0.2 X10*3/uL (0.0-0.4); Eosinophils Percent Auto 1.8 % (0-4); Hematocrit 42.2 % (37.0-47.0); Hemoglobin 13.2 g/dl (12.0-16.0); Imm Gran Abs Auto 0.02 X10*3/uL (0.00-0.03); Imm Gran Pct Auto 0.2 % (0.0-0.4); Lymphocytes Percent Auto 44.1 % (20-40); Mean Corpuscular HGB Conc 31.3 g/dl (31.0-35.0); Mean Corpuscular Hemoglobin 25.2 pg (27.0-33.0); Mean Corpuscular Volume 80.5 fL (80.0-98.0); Mean Platelet Volume 9.5 fL (9.4-12.3); Monocytes Absolute Auto 0.6 X10*3/uL (0.1-1.2); Monocytes Percent Auto 6.6 % (2-11); Neutrophils Absolute Auto 4.3 x10*3/uL (2.0-8.3); Neutrophils Percent Auto 46.9 % (45-73); Platelet Count 316 X10*3/uL (160-400); Red Blood Count 5.24 X10*6/uL (4.20-5.50); White Blood Count 9.1 X10*3/uL (4.8-10.8)
[2023-12-30 10:29] LABS: Estimated Average Glucose 140 mg/dL; Hemoglobin A1c % 6.5 % (<6.0)
[2023-12-30 10:48] LABS: Alanine Aminotransferase 20 U/L (0-31); Albumin Level 3.9 g/dL (3.5-5.0); Alkaline Phosphatase 97 U/L (39-117); Anion Gap 13 (12-20); Aspartate Amino Transferase 14 U/L (5-31); Bilirubin Total 0.4 mg/dL (0.0-1.0); Blood Urea Nitrogen 11 mg/dL (9-16); Calcium 9.4 mg/dL (8.4-10.2); Carbon Dioxide 26 mmol/L (22-29); Chloride 107 mmol/L (96-108); Cholesterol 178 mg/dL (<200); Estimated Glomerular Filt Rate > 60; Glucose Random 110 mg/dL (60-115); HDL Cholesterol 61 mg/dL (>40); LDL Cholesterol Calculated 105 mg/dL (<100); Potassium 3.9 mmol/L (3.3-5.1); Sodium 142 mmol/L (135-145); Total Protein 7.2 g/dL (6.5-8.0); Triglycerides 64 mg/dL (<150)
[2023-12-30 11:00] LABS: Creatinine Urine 233.85 mg/dL; Microalbum/Creatinine Ratio Ur 3.4 ug/mg cr (<30)
== END 2023-12-30 09:56 | disposition home or self-care (01) ==
LOC: HO.LAB 09:55
PROVIDERS: PCP Internal Medicine; Visit Provider Internal Medicine
DX: Z00.01 Encounter for general adult medical examination with abnormal findings (principal); E78.00 Pure hypercholesterolemia, unspecified; E11.9 Type 2 diabetes mellitus without complications; F32.2 Major depressive disorder, single episode, severe without psychotic features; F51.5 Nightmare disorder
CPT/HCPCS: 36415; 80053; 80061; 82043; 82570; 83036; 85025

== ENCOUNTER 2024-04-14 21:37 | Emergency (ER) | payer OTHER, SELFPAY ==
--- NOTE | ~2024-04-14 | XR_ITS ---
EXAMINATION: XR SOFT TISSUE NECK CLINICAL INDICATION: Difficulty swallowing COMPARISON: None available. TECHNIQUE: 2 views of the soft tissue neck were obtained. FINDINGS: Soft tissue films of the neck demonstrate a normal larynx, pharynx and upper trachea. No soft tissue swelling or opaque foreign body is demonstrated. Mild degenerative changes are present in the spine most marked from C4 through C6 with mild disc space narrowing and some anterior and posterior osteophytes. XR/XR soft tissue neck IMPRESSION: No evidence of a foreign body. Degenerative changes in the spine.
[2024-04-14 21:53] VITALS: BP 130/79; PULSE 72; RESP 17; TEMP 36.3; O2SAT 97; BMI 43.0
--- NOTE | 2024-04-14 22:39 | ED_ITS ---
HPI - General Adult General Chief complaint: General Medical Stated complaint: back pain Time Seen by Provider: 04/14/24 22:39 History of Present Illness ED Provider: Michelle BUTT narrative: The patient is a 53-year-old woman who comes to the emergency room concerned about back pain that started at approximately 13:00 this afternoon. She indicates that the pain is in both sides of her lower back. She denies any trauma or straining or lifting or other event that could have triggered low back pain. She was worried that it could be her kidneys. She is urinary discomfort. She also has some pain in the right side of her neck. She also says that for the last few weeks she feels that she often has difficulty swallowing her saliva, particularly when she is lying down. She says that she spoke to her PCP about this problem and was told it might be an allergic phenomenon. No fever, sweats, chills. Related Data Home Medications ?Medication ?Instructions ?Recorded ?Confirmed lancets 28 gauge (FreeStyle 08/03/20 09/23/20 Lancets) atorvastatin 10 mg tablet 1 tab PO DAILY 08/08/20 09/23/20 phentermine 37.5 mg capsule 1 cap PO DAILY 08/08/20 09/23/20 telmisartan 20 mg tablet 1 tab PO DAILY 08/08/20 09/23/20 Previous Rx's ?Medication ?Instructions ?Recorded lorazepam 0.5 mg tablet 0.5 mg PO BID PRN anxiety #10 tabs 08/13/20 ibuprofen 600 mg tablet 600 mg PO Q6H PRN pain #14 tabs 04/15/24 Allergies Allergy/AdvReac Type Severity Reaction Status Date / Time No Known Allergies Allergy Verified 04/14/24 21:56 Review of Systems 2 Review of Systems: Yes all other systems are reviewed and are negative [facility] Past Medical History Medical History Hyperlipidemia Hypertension Type II diabetes mellitus Surgical History History of section Family History Family History Father No problems noted. Father No problems noted. 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 She is cheerful and does not appear toxic. HENMT Other: Face is symmetrical. Mucous membranes are moist. The posterior pharynx is normal. No trismus. No intraoral abnormality or posterior pharyngeal abnormality. Eyes Other: Pupils are round equal, conjunctivae are clear Neck Other: No cervical adenopathy. No masses. No apparent abnormality to the anterior neck. Resp Effort & Inspection: normal respiratory effort Auscultation: clear to auscultation bilaterally Cardio Rate: regular rate Rhythm: regular rhythm Heart sounds: S1 normal heart sound present and S2 normal heart sound present GI Other: Abdomen is soft and nontender Back/Spine/Pelvis Other: No midline vertebral tenderness in the back. She has bilateral paraspinous tenderness in the lower lumbar regions. Skin Other: Skin is dry and unremarkable Neuro Other: The patient is awake and alert. Cranial nerves 2-12 are grossly intact. She has intact strength in her extremities. She has minimal reflexes at the knees and ankles. Toes go down bilaterally. Medications Administered Discontinued Medications Generic Name Dose Route Start Last Admin Trade Name Freq PRN Reason Stop Dose Admin Acetaminophen 975 mg 04/14/24 22:51 04/14/24 23:37 Acetaminophen 325 Mg Tablet PO 04/14/24 22:52 975 mg ONCE ONE Administration Ketorolac Tromethamine 30 mg 04/14/24 22:51 04/14/24 23:38 Ketorolac Tromethamine 30 Mg/Ml Vial IM 04/14/24 22:52 30 mg ONCE ONE Administration Medical Decision Making Medical Decision Making [facility] Narrative: The patient presents with 2 symptoms that I do not think are related. Her more acute symptom is low back pain that started at 13:00 this afternoon. She denies any trauma or injury or straining trigger. She describes bilateral lower back pain which does not radiate and is not associated with any neurological symptoms. I suspect this is musculoskeletal pain. Her other complaint is difficulty swallowing that seems more subacute. She seems to describe having difficulty swallowing her saliva particularly when she is lying down. She seemed to be handling her secretions well during my interview. A soft tissue neck x-ray is unremarkable. The patient's back pain was better with a dose of ketorolac and acetaminophen. She will be discharged to follow up with the regular doctor. I have prescribed ibuprofen. She should follow up with the regular doctor to discuss both of these complaints. Lab Data 04/14/24 23:32 04/14/24 23:28 Labs: Lab Results 04/14/24 04/14/24 04/14/24 Range/Units 22:41 23:28 23:32 WBC 10.6 (4.8-10.8) X10*3/uL RBC 4.56 (4.20-5.50) X10*6/uL Hgb 11.9 L (12.0-16.0) g/dl Hct 37.4 (37.0-47.0) % MCV 82.0 (80.0-98.0) fL MCH 26.1 L (27.0-33.0) pg MCHC 31.8 (31.0-35.0) g/dl RDW 16.7 H (11.0-16.0) % Plt Count 260 (160-400) X10*3/uL MPV 9.7 (9.4-12.3) fL Immature Gran % (Auto) 0.2 (0.0-0.4) % Neut % (Auto) 48.8 (45-73) % Lymph % (Auto) 42.1 H (20-40) % [place] % (Auto) 6.0 (2-11) % Eos % (Auto) 2.4 (0-4) % Baso % (Auto) 0.5 (0-2) % Lymph # (Auto) 4.5 (1.2-4.9) X10*3/uL [place] # (Auto) 0.6 (0.1-1.2) X10*3/uL Eos # (Auto) 0.3 (0.0-0.4) X10*3/uL Baso # (Auto) 0.1 (0.0-0.2) X10*3/uL Abs Immat Gran (auto) 0.02 (0.00-0.03) X10*3/uL Absolute Neuts (auto) 5.2 (2.0-8.3) x10*3/uL Absolute Nucleated RBC 0.000 (0.0-0.012) X10*3/uL Nucleated RBC % (auto) 0.0 (0.0-0.2) /100WBC Sodium 144 (135-145) mmol/L Potassium 3.9 (3.3-5.1) mmol/L Chloride 112 H (96-108) mmol/L Carbon Dioxide 25 (22-29) mmol/L Anion Gap 11 L (12-20) BUN 13 (9-16) mg/dL Creatinine 0.83 (0.5-1.4) mg/dL Estim Creat Clear Calc 83.1 Estimated GFR > 60 Random Glucose 139 H (60-115) mg/dL Calcium 9.0 (8.4-10.2) mg/dL Total Bilirubin 0.2 (0.0-1.0) mg/dL Direct Bilirubin < 0.2 (0.0-0.5) mg/dL AST 16 (5-31) U/L ALT 20 (0-31) U/L Alkaline Phosphatase 84 (39-117) U/L C-Reactive Protein 0.47 (< or = 0.50) mg/dL Total Protein 6.7 (6.5-8.0) g/dL Albumin 3.7 (3.5-5.0) g/dL Urine Color Yellow Urine Appearance Clear Urine pH 6.0 (5.0-9.0) Ur Specific [place] >= 1.030 H (1.005-1.025) Urine Protein Negative (Neg-Trace) mg/dL Urine Glucose (UA) Negative (Negative) mg/dL Urine Ketones Trace (Negative) mg/dL Urine Blood Negative (Negative) Urine Nitrite Negative (Negative) Ur Leukocyte Esterase Negative (Negative) Urine RBC 0-2 (0-2) /HPF Urine WBC 0-5 (0-5) /HPF Ur Squamous Epith Cells 11-20 (0-2) /HPF Urine Bacteria 2+ (None Seen) Hyaline Casts 0-2 (0-2) /LPF Discharge Plan Discharge Clinical Impression: Acute bilateral low back pain, Difficulty in swallowing Patient Disposition: Home, Self-Care Instructions: Acute Low Back Pain (ED) Additional Instructions: You may use acetaminophen (Tylenol) as needed for pain. You may take up to 2 extra-strength acetaminophen 3 times a day. I have also sent a prescription for ibuprofen that you may use every 6 hours as needed. Please avoid bending or lifting or other activities that might strain your lower back. Please make a follow up appointment soon with your regular doctor to discuss your low back pain and also to discuss the swallowing issues you have been having. Return to the emergency room if significantly worse. Prescriptions: New ibuprofen 600 mg tablet 600 mg PO Q6H PRN (Reason: pain) Qty: 14 0RF No Action (DME) lancets [FreeStyle Lancets] 28 gauge misc topical DAILY telmisartan 20 mg tablet 1 tab PO DAILY phentermine 37.5 mg capsule 1 cap PO DAILY Hold Instructions: Resume on 10/09/20. may contribute to anxiety mood instability recommend not taking for now atorvastatin 10 mg tablet 1 tab PO DAILY lorazepam 0.5 mg tablet 0.5 mg PO BID PRN (Reason: anxiety) Qty: 10 0RF Referrals: Betsy Peraza MD [Primary Care Provider] - (Low back pain, difficulty swallowing) Interventions: ED Discharge Assessment Last Done: 04/15/24 00:45 Discharge Date/Time: 04/15/24 00:46 Print Language: Zambian
[2024-04-14 22:50] LABS: Appearance Urine Clear; Color Urine Yellow; Glucose Urine UA Negative (Negative); Leukocyte Esterase Urine Negative (Negative); Nitrite Urine Negative (Negative); Specific Gravity - Urine >= 1.030 (1.005-1.025); Urine Blood Negative (Negative); Urine Ketones Trace mg/dL (Negative); Urine Protein Negative (Neg-Trace)
[2024-04-14 22:52] LABS: Bacteria Urine 2+ (None Seen); Hyaline Casts Urine 0-2 /LPF (0-2); RBC Urine 0-2 /HPF (0-2); WBC Urine 0-5 /HPF (0-5)
[2024-04-14 23:36] LABS: MANUAL DIFF FLAG NO
[2024-04-14] MEDS: Acetaminophen 325 MG TABLET 975 MG PO (23:37)
[2024-04-14] MEDS: Ketorolac Tromethamine 30 MG/ML VIAL IM (23:38)
[2024-04-14 23:44] LABS: Basophils Absolute Auto 0.1 X10*3/uL (0.0-0.2); Basophils Percent Auto 0.5 % (0-2); Eosinophils Absolute Auto 0.3 X10*3/uL (0.0-0.4); Eosinophils Percent Auto 2.4 % (0-4); Hematocrit 37.4 % (37.0-47.0); Hemoglobin 11.9 g/dl (12.0-16.0); Imm Gran Abs Auto 0.02 X10*3/uL (0.00-0.03); Imm Gran Pct Auto 0.2 % (0.0-0.4); Lymphocytes Absolute Auto 4.5 X10*3/uL (1.2-4.9); Lymphocytes Percent Auto 42.1 % (20-40); Mean Corpuscular HGB Conc 31.8 g/dl (31.0-35.0); Mean Corpuscular Hemoglobin 26.1 pg (27.0-33.0); Mean Platelet Volume 9.7 fL (9.4-12.3); Monocytes Absolute Auto 0.6 X10*3/uL (0.1-1.2); Neutrophils Absolute Auto 5.2 x10*3/uL (2.0-8.3); Neutrophils Percent Auto 48.8 % (45-73); Platelet Count 260 X10*3/uL (160-400); Red Blood Count 4.56 X10*6/uL (4.20-5.50); Red Cell Distribution Width 16.7 % (11.0-16.0); White Blood Count 10.6 X10*3/uL (4.8-10.8)
[2024-04-14 23:50] LABS: Alanine Aminotransferase 20 U/L (0-31); Albumin Level 3.7 g/dL (3.5-5.0); Alkaline Phosphatase 84 U/L (39-117); Anion Gap 11 (12-20); Aspartate Amino Transferase 16 U/L (5-31); Bilirubin Direct < 0.2 mg/dL (0.0-0.5); Bilirubin Total 0.2 mg/dL (0.0-1.0); Blood Urea Nitrogen 13 mg/dL (9-16); C Reactive Protein 0.47 mg/dL (< or = 0.50); Carbon Dioxide 25 mmol/L (22-29); Chloride 112 mmol/L (96-108); Creatinine Clr Calc Pharmacy 83.1; Estimated Glomerular Filt Rate > 60; Glucose Random 139 mg/dL (60-115); Potassium 3.9 mmol/L (3.3-5.1); Sodium 144 mmol/L (135-145); Total Protein 6.7 g/dL (6.5-8.0)
[2024-04-15 00:44] VITALS: BP 126/87; PULSE 69; RESP 16; TEMP 36.3; O2SAT 97
[2024-04-15 00:45] VITALS: BP 126/87; PULSE 69; RESP 16; TEMP 36.3; O2SAT 97
== END 2024-04-15 00:46 | disposition home or self-care (01) ==
PROVIDERS: Emergency Provider Emergency Medicine; PCP Internal Medicine
DX: M54.50 Low back pain, unspecified (principal); R13.10 Dysphagia, unspecified; M54.2 Cervicalgia; I10 Essential (primary) hypertension; E78.5 Hyperlipidemia, unspecified; E11.9 Type 2 diabetes mellitus without complications
CPT/HCPCS: 36415; 70360; 80048; 80076; 81001; 85025; 86140; 96372; 99284; J1885

== ENCOUNTER 2024-09-11 08:23 | Outpatient (REF) | payer OTHER, SELFPAY ==
[2024-09-11 09:27] LABS: Estimated Average Glucose 151 mg/dL; Hemoglobin A1C 169.2539 umol/L; Hemoglobin A1c % 6.9 % (<6.0); Total Hemoglobin (HGBA1C) 3238.1297 umol/L
[2024-09-11 09:36] LABS: Alanine Aminotransferase 21 U/L (0-31); Albumin Level 3.7 g/dL (3.5-5.0); Alkaline Phosphatase 76 U/L (39-117); Anion Gap 11 (12-20); Aspartate Amino Transferase 20 U/L (5-31); Bilirubin Total 0.4 mg/dL (0.0-1.0); Blood Urea Nitrogen 14 mg/dL (9-16); Calcium 9.2 mg/dL (8.4-10.2); Carbon Dioxide 26 mmol/L (22-29); Chloride 110 mmol/L (96-108); Estimated Glomerular Filt Rate > 60; Glucose Random 117 mg/dL (60-115); Sodium 143 mmol/L (135-145); Total Protein 6.9 g/dL (6.5-8.0)
--- OUTSIDE RECORDS SUMMARY | 2024-09-17 16:25 | XMS_ITS | Patient Health Record ---
Author Organization [facility] Address [address] [place] [address] Care Team Providers Care Tailor Women'S Garment Alteration Name Role Phone Betsy Peraza Primary Care Provider Unavailab Pablo Conroy Jr Unavailable [phone] REASON FOR REFERRAL No Information MEDICATIONS Medication SIG (Take, Route, Frequency, Duration) Notes Start Date End Date Status Losartan Potassium 25 MG 1 tablet Orally Once a day for 30 day(s) 1/2 tablet daily Active Vitamin C Active FreeStyle Lite Test Active Tylenol PRN Active Vitamin D Active Phentermine HCl Acti ve MiraLax (colon prep) 8.3 ounce ((238) grams mixed with Gatorade or Crystal Light orally begin at 5:00 p.m. the day before the procedure for 1 day 07/24/2020 Active Atorvastatin Calcium Active IMMUNIZATIONS Vaccine Route Administration Date Status Comme nts Influenza Unknown 07/24/2020 Administered SOCIAL HISTORY Tobacco Use: Social History Observation Description Date Details (start date - stop date) Never Smoker NA - NA Sex Assigned At : Social History Observation Description Sex Assigned At Unknown Tobacco Use/Smoking Question Answer Notes Patient is a nonsmoker Alcohol Screen Question Answer Notes Did you have a drink contain ing alcohol in the past year? Yes How often did you have a dri nk containing alcohol in the past year? Monthly or less (1 point) How many drinks did you have on a typical day when you were drinking in the past year? 1 or 2 drinks (0 point) How often did you have 6 or more drinks on one occasion in the past year? Never (0 point) Points 1 Interpretation Negative PROBLEMS Problem Type ICD Code Onset Dates Problem Status W/U Status Risk SNOMED Code Notes Problem Colon cancer screening (Z12.11) Active confirmed 049268988 Problem Encounter for other preprocedural examination (Z01.818) Active confirmed [id number] PLAN OF TREATMENT Future Test Test Name Order Date COLONOSCOPY 07/24/2020 Insurance Providers Payer Name Payer Address Payer Phone Subscriber Number Group Number Insured Name Patient Relationship to Insured Coverage Start Date Coverage End Date [facility] [address] [address] [place], [place] [phone] [id number] AB MORENO Self - patient is the insured MEDICAL (GENERAL) HISTORY Medical History History ICD Code type II diabetes hyperlipidemia hypertension elevated BMI Surgical History Surgery Date(Month/Year) section
== END 2024-09-11 08:24 | disposition home or self-care (01) ==
LOC: HO.LAB 08:23
PROVIDERS: PCP Internal Medicine; Visit Provider Internal Medicine
DX: E11.9 Type 2 diabetes mellitus without complications (principal); F33.41 Major depressive disorder, recurrent, in partial remission; F51.5 Nightmare disorder; H60-H95 Diseases of the ear and mastoid process
CPT/HCPCS: 36415; 80053; 83036

== ENCOUNTER 2024-12-30 08:47 | Outpatient (REF) | payer OTHER, SELFPAY ==
[2024-12-30 09:00] LABS: MANUAL DIFF FLAG NO
[2024-12-30 10:21] LABS: Basophils Absolute Auto 0.1 X10*3/uL (0.0-0.2); Basophils Percent Auto 0.7 % (0-2); Eosinophils Absolute Auto 0.2 X10*3/uL (0.0-0.4); Eosinophils Percent Auto 2.5 % (0-4); Hematocrit 41.4 % (37.0-47.0); Hemoglobin 12.9 g/dl (12.0-16.0); Imm Gran Abs Auto 0.01 X10*3/uL (0.00-0.03); Imm Gran Pct Auto 0.1 % (0.0-0.4); Lymphocytes Absolute Auto 3.2 X10*3/uL (1.2-4.9); Lymphocytes Percent Auto 44.1 % (20-40); Mean Corpuscular HGB Conc 31.2 g/dl (31.0-35.0); Mean Corpuscular Hemoglobin 25.7 pg (27.0-33.0); Mean Corpuscular Volume 82.5 fL (80.0-98.0); Mean Platelet Volume 10.2 fL (9.4-12.3); Monocytes Absolute Auto 0.4 X10*3/uL (0.1-1.2); Monocytes Percent Auto 5.8 % (2-11); Neutrophils Absolute Auto 3.4 x10*3/uL (2.0-8.3); Neutrophils Percent Auto 46.8 % (45-73); Platelet Count 308 X10*3/uL (160-400); Red Blood Count 5.02 X10*6/uL (4.20-5.50); White Blood Count 7.3 X10*3/uL (4.8-10.8)
[2024-12-30 10:24] LABS: Estimated Average Glucose 148 mg/dL; Hemoglobin A1C 174.1075 umol/L; Hemoglobin A1c % 6.8 % (<6.0); Total Hemoglobin (HGBA1C) 3428.1455 umol/L
[2024-12-30 10:47] LABS: Alanine Aminotransferase 24 U/L (0-31); Albumin Level 3.7 g/dL (3.5-5.0); Alkaline Phosphatase 83 U/L (39-117); Anion Gap 9 (12-20); Aspartate Amino Transferase 18 U/L (5-31); Bilirubin Total 0.3 mg/dL (0.0-1.0); Blood Urea Nitrogen 13 mg/dL (9-16); Calcium 9.2 mg/dL (8.4-10.2); Carbon Dioxide 28 mmol/L (22-29); Chloride 110 mmol/L (96-108); Cholesterol 187 mg/dL (<200); Estimated Glomerular Filt Rate > 60; Glucose Random 132 mg/dL (60-115); HDL Cholesterol 54 mg/dL (>40); LDL Cholesterol Calculated 121 mg/dL (<100); Potassium 4.9 mmol/L (3.3-5.1); Sodium 142 mmol/L (135-145); Triglycerides 64 mg/dL (<150)
[2024-12-30 12:32] LABS: Creatinine Urine 143.71 mg/dL; Microalbum/Creatinine Ratio Ur 3.4 ug/mg cr (<30)
== END 2024-12-30 08:48 | disposition home or self-care (01) ==
LOC: HO.LAB 08:47
PROVIDERS: PCP Internal Medicine; Visit Provider Internal Medicine
DX: E11.9 Type 2 diabetes mellitus without complications (principal); E78.00 Pure hypercholesterolemia, unspecified; I10 Essential (primary) hypertension; L30.4 Erythema intertrigo
CPT/HCPCS: 36415; 80053; 80061; 82043; 82570; 83036; 85025

== ENCOUNTER 2025-03-31 07:03 | Outpatient (REF) | payer OTHER, SELFPAY ==
--- OUTSIDE RECORDS SUMMARY | 2025-03-31 07:05 | XMS_ITS | Patient Health Record ---
Author Organization [facility] Address [address] [place] [address] Care Team Providers Care Infant Childcare Provider Name Role Phone Betsy Peraza Primary Care Provider Unavailab Pablo Conroy Jr Unavailable Reason For Referral No Information Medications Medication SIG (Take, Route, Frequency, Duration) Notes [...] 1 day 07/24/2020 Active Atorvastatin Calcium Active Immunizations Vaccine Route Administration Date Status Comme nts Influenza Unknown 07/24/2020 Administered Social History Tobacco Use: Social History Observation Description Date Details (start date - stop date) Never Smoker NA - NA Tobacco Use/Smoking Question Answer Notes Patient is [...] Never (0 point) Points 1 Interpretation Negative Section Notes: dinks ocasional wine Problems Problem Type SNOMED Code ICD Code Onset Dates Problem Status W/U Status Risk Notes Problem [id number] Colon cancer screening (Z12.11) Active confirmed Problem 944917739 Encounter for other preprocedural examination (Z01.818) Active confirmed Plan Of Treatment Future Test Test Name Order Date COLONOSCOPY 07/24/2020 Insurance Providers Payer Name Payer Address Payer Phone Subscriber Number Group Number Insured Name Patient Relationship to Insured Coverage Start Date Coverage End Date [facility] [address] [address] [place], [place] [phone] [id number] AB MORENO Self - patient is the insured Medical (General) History Medical History History ICD Code type II diabetes hyperlipidemia hypertension elevated BMI Surgical History Surgery Date(Month/Year) section
[2025-03-31 07:45] LABS: Estimated Average Glucose 134 mg/dL; Hemoglobin A1C 150.9337 umol/L; Hemoglobin A1c % 6.3 % (<6.0)
[2025-03-31 08:02] LABS: Alanine Aminotransferase 30 U/L (0-31); Albumin Level 3.9 g/dL (3.5-5.0); Alkaline Phosphatase 91 U/L (39-117); Anion Gap 10 (12-20); Aspartate Amino Transferase 20 U/L (5-31); Bilirubin Total 0.2 mg/dL (0.0-1.0); Blood Urea Nitrogen 18 mg/dL (9-16); Calcium 9.4 mg/dL (8.4-10.2); Carbon Dioxide 25 mmol/L (22-29); Chloride 112 mmol/L (96-108); Cholesterol 157 mg/dL (<200); Estimated Glomerular Filt Rate > 60; Glucose Random 120 mg/dL (60-115); HDL Cholesterol 48 mg/dL (>40); LDL Cholesterol Calculated 95 mg/dL (<100); Potassium 4.4 mmol/L (3.3-5.1); Sodium 143 mmol/L (135-145); Triglycerides 73 mg/dL (<150)
== END 2025-03-31 07:04 | disposition home or self-care (01) ==
LOC: HO.LAB 07:03
PROVIDERS: PCP Internal Medicine; Visit Provider Internal Medicine
DX: Z00.00 Encounter for general adult medical examination without abnormal findings (principal); E11.9 Type 2 diabetes mellitus without complications; E78.00 Pure hypercholesterolemia, unspecified; I10 Essential (primary) hypertension
CPT/HCPCS: 36415; 80053; 80061; 83036

== ENCOUNTER 2025-04-01 08:31 | Outpatient (REF) | payer OTHER, SELFPAY ==
--- NOTE | ~2025-04-01 | XR_ITS ---
EXAMINATION: XR KNEE, LEFT CLINICAL INFORMATION: M25.562 - Pain in left knee COMPARISON: December 05, 2016. TECHNIQUE: AP lateral and swimmer's projection of the left knee. FINDINGS: Joint space narrowing involving the medial compartment with sclerosis along the articular surface of the medial tibial plateau and small marginal osteophyte formation and medial femoral condyle and medial tibial plateau. No acute cortical disruption or malalignment. Subchondral cyst formation in the posterior patella. No suprapatellar bursa joint effusion. No lytic or blastic lesions. XR/XR knee LT 3V IMPRESSION: Medial compartment osteoarthrosis. Worsened since prior examination. Electronically signed by: Regan Looney MD 04/01/2025 02:02 PM EDT
--- OUTSIDE RECORDS SUMMARY | 2025-04-02 08:49 | XMS_ITS | Patient Health Record ---
Author Organization [facility] Address [address] [place] [address] Care Team Providers Care Cnc Programmer Name Role Phone Betsy Peraza Primary Care [...] Problem Status W/U Status Risk Notes Problem 721098970 Colon cancer screening (Z12.11) Active confirmed Problem 592130528 Encounter for other preprocedural examination (Z01.818) Active confirmed Plan Of Treatment Future Test Test Name Order Date COLONOSCOPY 07/24/2020 Insurance Providers Payer Name Payer Address Payer Phone Subscriber Number Group Number Insured Name Patient Relationship to Insured Coverage Start Date Coverage End Date [facility] [address] [address] [place], [place] [phone] [id number] AB MORENO Self - patient is the insured Medical (General) History Medical History History ICD Code type II diabetes hyperlipidemia hypertension elevated BMI Surgical History Surgery Date(Month/Year) section
== END 2025-04-01 08:32 | disposition home or self-care (01) ==
LOC: HO.HOSX 08:31
PROVIDERS: Visit Provider Orthopaedic Surgery
DX: M25.562 Pain in left knee (principal); M17.12 Unilateral primary osteoarthritis, left knee
CPT/HCPCS: 73562

== ENCOUNTER 2025-04-01 13:40 | Outpatient (AMB) | payer OTHER, SELFPAY ==
--- NOTE | 2025-04-01 13:55 | MHC.OFFVIS ---
Vital Signs 04/01/25 14:06 Height 5 ft Weight 220 lb BMI 43.0 Intake Visit Reasons: Left knee pain Intake Note: Ramya is a 54 year old female who presents with complaints of progressively worsening left knee pain. She describes her pain as sharp in nature. Her pain has gotten worse over the last few years in spite of continued non operative treatments. She has had cortisone injections in the past which gave her minimal relief. She has also done physical therapy exercises which aggravated her pain. She has failed the last 3 months of conservative treatment which has included Tylenol, ibuprofen, diclofenac, a home exercise program and physical therapy exercises. The patient wishes to hold off on surgery if at all possible. Allergies No Known Allergies Allergy (Verified 04/01/25 14:00) Medication List - Last Reconciled 04/01/25 by Reece Seay MD atorvastatin 80 mg PO DAILY diclofenac sodium 75 mg PO BID PRN ibuprofen 600 mg PO Q6H PRN lancets (FreeStyle Lancets) lorazepam 0.5 mg PO BID PRN metoprolol succinate ER 100 mg PO DAILY sertraline 100 mg PO QAM telmisartan-hydrochlorothiazid 40-12.5 mg 1 tab PO DAILY tirzepatide (Mounjaro) mg subcut QWEEK PFSH Medical History (Updated 04/02/25 @ 07:27 by Reece Seay MD) Type II diabetes mellitus Hyperlipidemia Hypertension Surgical History (Updated 04/01/25 @ 14:05 by Amparo Barrera [facility]) Hx of cataract surgery History of section Family History Father No problems noted. Father No problems noted. 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 Sexual orientation: Straight/Heterosexual Physical Exam Vital Signs: BMI result Body Mass Index 43.0 Const Other: Well-nourished well-developed very friendly female awake alert and oriented x3 in no acute distress Extrem Other: Bilateral lower extremity examination shows good capillary refill, no skin lesions noted, normal sensation light touch Left knee examination shows a minimal effusion, palpable crepitus with range of motion, pain with range of motion, no instability Results Reviewed Results Reviewed: X-rays of the patient's left knee show mild to moderate joint space narrowing, subchondral sclerosis, no acute bony abnormalities Assessment & Plan Assessment & Plan (1) Left knee pain: Code(s): M25.562 - Pain in left knee Category: Medical (2) Osteoarthritis of left knee: Code(s): M17.12 - Unilateral primary osteoarthritis, left knee Category: Medical Plan Ms. Graff presents with left knee pain due to osteoarthritis. I had a lengthy discussion with the patient regarding the treatment options. She wishes to hold off on surgery if at all possible. I agree with this plan. I will see whether or not the patient's insurance company will cover a viscosupplementation injection such as Durolane. I will see her back once the injection is available. Feel free to call me at any time should questions regarding her orthopedic management arise. I spent 20 minutes in reviewing the patient's records and imaging studies, seeing the patient and documenting in the medical record. Orders: Orders XR knee LT 3V 04/01/25 M25.562 - Pain in left knee Coding Level of Care Code Est Pt Level 3 (83060) Complex EM visit Add On G2211 Diagnoses Left knee pain M25.562 Osteoarthritis of left knee M17.12
[2025-04-01 14:06] VITALS: BMI 43.0
--- OUTSIDE RECORDS SUMMARY | 2025-04-01 15:56 | XMS_ITS | Patient Health Record ---
Author Organization [facility] Address [address] [place] [address] Care Team Providers Care Cell Tester Name Role Phone Betsy Peraza Primary Care Provider Unavailab Pablo Conroy Jr Unavailable [phone] Reason For Referral No Information Medications Medication [...] Problem Status W/U Status Risk Notes Problem 483941735 Colon cancer screening (Z12.11) Active confirmed Problem 250323177 Encounter for other preprocedural examination (Z01.818) Active confirmed Plan Of Treatment Future Test Test Name Order Date COLONOSCOPY 07/24/2020 Insurance Providers Payer Name Payer Address Payer Phone Subscriber Number Group Number Insured Name Patient Relationship to Insured Coverage Start Date Coverage End Date [facility] [address] [address] [place], [place] [phone] [id number] AB MORENO Self - patient is the insured Medical (General) History Medical History History ICD Code type II diabetes hyperlipidemia hypertension elevated BMI Surgical History Surgery Date(Month/Year) section
== END 2025-04-01 14:13 | disposition home or self-care (01) ==
LOC: HO.HOS 13:41
PROVIDERS: PCP Internal Medicine; Visit Provider Orthopaedic Surgery
DX: M25.562 Pain in left knee (principal); M17.12 Unilateral primary osteoarthritis, left knee
CPT/HCPCS: 99213; G2211

== ENCOUNTER → 2025-04-01 13:43 | Outpatient (BNV) | payer OTHER, SELFPAY | PROVIDERS: Visit Provider Radiology Diagnostic Radiology | DX: M17.12 Unilateral primary osteoarthritis, left knee (principal) | CPT/HCPCS: 73562 ==

== ENCOUNTER 2025-04-20 01:36 | Observation (INO) | payer OTHER, SELFPAY ==
[2025-04-20] VITALS (7 sets, daily range): BP systolic 102–152; BP diastolic 55–98; PULSE 82–96; RESP 15–202; TEMP 36.5–36.8; O2SAT 97–99; BMI 42.1
--- NOTE | 2025-04-20 | ECG_ITS ---
Test Reason : dizziness and cp Blood Pressure : */* mmHG Vent. Rate : 86 BPM Atrial Rate : 86 BPM P-R Int : 192 ms QRS Dur : 82 ms QT Int : 378 ms P-R-T Axes : 52 49 55 degrees QTcB Int : 452 ms Normal sinus rhythm Normal ECG When compared with ECG of 15-Jul-2018 08:48, No significant change was found Referred By: Generic ED Physician Electronically Signed By: Davis Florez
--- NOTE | ~2025-04-20 | MR_ITS ---
CLINICAL HISTORY: continuous vertigo, r o posterior circulation CVA MR Brain without gadolinium Comparison: None provided Findings: No restricted diffusion. No intra-axial mass or hemorrhage. No midline shift. No hydrocephalus. Vascular flow voids are intact. The orbits are normal. The sinuses and mastoid air cells are clear. No focal bone lesion. IMPRESSION: No acute findings. This document has been electronically signed by: Zuhair Doty MD on 04/20/2025 17:33:21
[2025-04-20 01:57] LABS: Hematocrit 36.2 % (37.0-47.0); Hemoglobin 12.0 g/dl (12.0-16.0); Imm Gran Abs Auto 0.05 X10*3/uL (0.00-0.03); Imm Gran Pct Auto 0.4 % (0.0-0.4); Lymphocytes Absolute Auto 5.8 X10*3/uL (1.2-4.9); MANUAL DIFF FLAG SCAN; Mean Corpuscular HGB Conc 33.1 g/dl (31.0-35.0); Mean Corpuscular Hemoglobin 25.9 pg (27.0-33.0); Mean Corpuscular Volume 78.2 fL (80.0-98.0); NRBC Abs Auto 0.000 X10*3/uL (0.0-0.012); NRBC Pct Auto 0.0 /100WBC (0.0-0.2); Platelet Count 294 X10*3/uL (160-400); Red Blood Count 4.63 X10*6/uL (4.20-5.50); SCAN SMEAR FLAG 1; White Blood Count 13.5 X10*3/uL (4.8-10.8)
[2025-04-20 02:13] LABS: Alanine Aminotransferase 22 U/L (0-31); Albumin Level 3.8 g/dL (3.5-5.0); Alkaline Phosphatase 95 U/L (39-117); Anion Gap 14 (12-20); Aspartate Amino Transferase 21 U/L (5-31); Blood Urea Nitrogen 16 mg/dL (9-16); Calcium 8.7 mg/dL (8.4-10.2); Carbon Dioxide 23 mmol/L (22-29); Chloride 108 mmol/L (96-108); Creatinine Clr Calc Pharmacy 80.6; Estimated Glomerular Filt Rate > 60; Potassium 3.1 mmol/L (3.3-5.1); Sodium 142 mmol/L (135-145); Total Protein 6.8 g/dL (6.5-8.0)
[2025-04-20 02:18] LABS: Troponin-I High Sensitivity < 2.7 ng/L (<3.5-17.0)
--- OUTSIDE RECORDS SUMMARY | 2025-04-20 02:49 | XMS_ITS | Patient Health Record ---
Author Organization [facility] Address [address] [place] [address] Care Team Providers Care Vp Director Of Finance Name Role Phone Betsy Peraza Primary Care [...] Problem Status W/U Status Risk Notes Problem 937292498 Colon cancer screening (Z12.11) Active confirmed Problem 393362028 Encounter for other preprocedural examination (Z01.818) Active confirmed Plan Of Treatment Future Test Test Name Order Date COLONOSCOPY 07/24/2020 Insurance Providers Payer Name Payer Address Payer Phone Subscriber Number Group Number Insured Name Patient Relationship to Insured Coverage Start Date Coverage End Date [facility] [address] [address] [place], [place] [id number] AB MORENO Self - patient is the insured Medical (General) History Medical History History ICD Code type II diabetes hyperlipidemia hypertension elevated BMI Surgical History Surgery Date(Month/Year) section
--- NOTE | 2025-04-20 02:55 | ED_ITS ---
HPI - Dizziness General Chief Complaint: Dizziness Stated Complaint: dizziness Time Seen by Provider: 04/20/25 02:01 Source: patient and family (Daughter) Mode of arrival: ambulatory Limitations: no limitations History of Present Illness ED Provider: Dr. Peg Sneed HPI Narrative: 54-year-old female with history of diabetes, hypertension, hyperlipidemia, vertigo presenting with severe dizziness, nausea and vomiting ongoing since about midnight when she woke up to use the bathroom. States that she got up to use the bathroom and felt immediately dizzy, unable to stand and very nauseous. Began vomiting upon arrival to the emergency department. Symptoms are worse when moving her head to the right. Admits to associated slight headache that is what she describes a ?dull ache?. Pain is mostly behind her eyes. No vision changes though she does admit when the dizziness is severe, she has some blurred vision. Denies bowel changes, urinary complaints, chest pain, difficulty breathing, lower extremity edema or pain. Had been feeling well prior to this. No numbness/tingling/weakness of the extremities. No recent trauma. Related Data Home Medications ?Medication ?Instructions ?Recorded ?Confirmed lancets 28 gauge (FreeStyle 08/03/20 09/23/20 Lancets) atorvastatin 80 mg tablet 80 mg PO DAILY 04/01/2503/10 diclofenac sodium 75 mg 75 mg PO BID PRN low back pa in 04/01/25 04/01/25 tablet,delayed release metoprolol succinate 100 mg 100 mg PO DAILY 04/01/25 0 04/01/25 tablet,extended release 24 hr sertraline 100 mg tablet 100 mg PO QAM 04/01/2504/01 telmisartan 40 1 tab PO DAILY 04/01/2503/10 mg-hydrochlorothiazide 12.5 mg tablet tirzepatide 5 mg/0.5 mL mg subcut QWEEK 04/01/25 subcutaneous pen injector (Ramon) Previous Rx's ?Medication ?Instructions ?Recorded lorazepam 0.5 mg tablet 0.5 mg PO BID PRN anxiety #1 0 tabs 08/13/20 ibuprofen 600 mg tablet 600 mg PO Q6H PRN pain #14 t abs 04/15/24 Allergies Allergy/AdvReac Type Severity Reaction Status Date / Time No Known Allergies Allergy Verified 04/20/25 01:44 Review of Systems 2 Review of Systems: Yes all other systems are reviewed and are negative (As per HPI) [facility] Past Medical History Attestation statement: The following information was validated with the patient. (Diabetes, hypertension, hyperlipidemia) Source: nursing notes reviewed Medical History Type II diabetes mellitus Hyperlipidemia Hypertension Surgical History Hx of cataract surgery History of section Family History Family History Father No problems noted. Father No problems noted. 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 SKIN: Normal skin color for ethnicity, warm, dry, no rashes noted. HEENT: Normocephalic, atraumatic, no stridor, dry mucous membranes, dentition intact, EOMI, PERRLA, no nystagmus. NECK: Soft, supple, full ROM, midline structures nontender, no step-offs, no deformities, no lymphadenopathy. CHEST: Heart regular tachycardia, no murmurs, symmetric chest rise and fall. PULMONARY: Clear to auscultation bilaterally, diminished at the bases, no labored breathing, no wheezes/rhales/rhonchi. ABDOMINAL: Soft, nondistended, nontender, positive bowel sounds in all quadrants. : Deferred. MUSCULOSKELETAL: Normal tone, full range of motion, no deformities, no peripheral edema. NEURO: Alert and oriented x3, CN II through XII intact, equal strength and sensation bilateral upper and lower extremities, no focal neurologic deficits, eyes are closed, vertiginous with any head movement particularly to the right. PSYCHIATRIC: Flat affect, fluid speech, good eye contact and appropriate demeanor. Medications Administered Discontinued Medications Generic Name Dose Route Start Last Admin Trade Name Freq PRN Reason Stop Dose Admin Diazepam 5 mg 04/20/25 02:55 04/20/25 03:11 Diazepam 10 Mg/2 Ml Cartridge IVPUSH 04/20/25 02:56 5 mg STAT STA Administration Lactated Ringer's 1,000 mls @ 999 mls/hr 04/20/25 02:55 04/20/25 04:30 Lr IV 04/20/25 03:55 Infused .Q1H1M ONE Infusion Meclizine HCl 50 mg 04/20/25 05:38 04/20/25 06:17 Meclizine Hcl 25 Mg Tablet PO 04/20/25 05:39 50 mg ONCE ONE Administration Ondansetron HCl 4 mg 04/20/25 02:01 04/20/25 02:09 Ondansetron Hcl 4 Mg/2 Ml Vial IVPUSH 04/20/25 02:02 4 mg ONCE ONE Administration Medical Decision Making Medical Decision Making MDM Narrative: Patient presents today with a chief complaint of dizziness. Differential diagnosis is extremely broad and includes posterior circulation deficits causing vestibular basilar symptoms, anemia, hypovolemia, middle or inner ear problems, intracranial abnormality such as stroke bleed or tumor, electrolyte abnormalities, among many others. This patient does not have any focal neurological findings at this time. 7:38 a.m. patient has had multiple medications including Zofran, Valium, Reglan, meclizine without relief of her nausea and dizziness. At this point, we will treat her as continuous vertigo that is intractable, order MRI of the brain and admit to hospitalist for further care and evaluation. She remains hemodynamically stable without neurologic deficits otherwise. She was actually able to sit up to go to the commode I am told by the RN however, once she got back in bed, vertigo symptoms got significantly worse. Admitted in guarded condition. Differential Diagnosis Differential Diagnoses: The differential diagnosis associated with the presentation includes (As per HPI) Admission/Observation Consideration of admission/observation: Escalation of care including admission/observation considered Lab Data [facility] Lab Attestation statement: I reviewed the patient's lab results. 04/20/25 01:51 04/20/25 01:51 Labs: Lab Results 04/20/25 Range/Units 01:51 WBC 13.5 H (4.8-10.8) X10*3/uL RBC 4.63 (4.20-5.50) X10*6/uL Hgb 12.0 (12.0-16.0) g/dl Hct 36.2 L (37.0-47.0) % MCV 78.2 L (80.0-98.0) fL MCH 25.9 L (27.0-33.0) pg MCHC 33.1 (31.0-35.0) g/dl RDW 16.3 H (11.0-16.0) % Plt Count 294 (160-400) X10*3/uL MPV 9.3 L (9.4-12.3) fL Immature Gran % (Auto) 0.4 (0.0-0.4) % Neut % (Auto) 47.9 (45-73) % Lymph % (Auto) 42.7 H (20-40) % [place] % (Auto) 6.4 (2-11) % Eos % (Auto) 2.3 (0-4) % Baso % (Auto) 0.3 (0-2) % Lymph # (Auto) 5.8 H (1.2-4.9) X10*3/uL [place] # (Auto) 0.9 (0.1-1.2) X10*3/uL Eos # (Auto) 0.3 (0.0-0.4) X10*3/uL Baso # (Auto) 0.0 (0.0-0.2) X10*3/uL Abs Immat Gran (auto) 0.05 H (0.00-0.03) X10*3/uL Absolute Neuts (auto) 6.5 (2.0-8.3) x10*3/uL Absolute Nucleated RBC 0.000 (0.0-0.012) X10*3/uL Nucleated RBC % (auto) 0.0 (0.0-0.2) /100WBC Smear Tech's Comments VERIFIED Sodium 142 (135-145) mmol/L Potassium 3.1 L D (3.3-5.1) mmol/L Chloride 108 (96-108) mmol/L Carbon Dioxide 23 (22-29) mmol/L Anion Gap 14 (12-20) BUN 16 (9-16) mg/dL Creatinine 0.87 (0.5-1.4) mg/dL Estim Creat Clear Calc 80.6 Estimated GFR > 60 Random Glucose 203 H (60-115) mg/dL Calcium 8.7 D (8.4-10.2) mg/dL Total Bilirubin 0.2 (0.0-1.0) mg/dL Direct Bilirubin < 0.2 (0.0-0.5) mg/dL AST 21 (5-31) U/L ALT 22 (0-31) U/L Alkaline Phosphatase 95 (39-117) U/L Troponin I High Sens < 2.7 (<3.5-17.0) ng/L Total Protein 6.8 (6.5-8.0) g/dL Albumin 3.8 (3.5-5.0) g/dL Independent Interpretation I performed an independent interpretation of an: EKG Interpretation: My independent interpretation of the ECG reveals normal sinus rhythm with rate of 86, normal axis, normal intervals, no ST elevations or depressions to suggest ischemic changes, no previous for comparison. Chronic Conditions Patient?s care impacted by: Diabetes and Hypertension Discharge Plan Discharge Clinical Impression: Vertigo, Headache Patient Disposition: Admitted As Inpatient Print Language: Paraguayan
[2025-04-20] MEDS: diazePAM 10 MG/2 ML CARTRIDGE 5 MG IVPUSH (03:11)
[2025-04-20] MEDS: Lactated Ringers 1,000 ML 999 ML IV ×2 (03:11→07:53)
--- NOTE | 2025-04-20 03:11 | PC.NURSE ---
Patient medicated per MAR.
--- NOTE | 2025-04-20 03:59 | PC.NURSE ---
Patient reports chest pain, nausea/vomiting resolved after administration of Zofran IVP and Valium IVP. Per patient, dizziness is still present, however significantly improved. LR infusing via 20 G IV line in L AC, patient [id number] no complaints at present. Patient is able to make her needs known, call dickerson paced within patient's reach.
--- NOTE | 2025-04-20 09:46 | MHC.CM.PN ---
CM met with Patient at bedside, in the ED, and addressed GALVEZ with her, providing Patient with the original and a copy will be placed on the chart. Patient lives in a house with her 2 twin, adult Daughters, one of home who will transport to home at time of dc. CM has initiated and will follow for dc planning. PCP is Dr. Betsy Peraza.
--- NOTE | 2025-04-20 09:59 | PHA.MEDREC ---
Addendum entered by Arlene Perez RPh 04/20/25 10:12: reviewed by [facility] Original Note: Pharmacy Consult ? Medication Reconciliation Pharmacy has completed the medication reconciliation. Spoke with patient to confirm. She is no longer taking diclofenac or prazosin. She has not picked up Xiidra from the pharmacy yet and uses systane eye drops OTC. She takes Mounjaro on , had last . She last took her medications yesterday.
--- NOTE | 2025-04-20 11:19 | PM.IMHP ---
History of Present Illness Date of Service: 04/20/25 Attending physician on admission: Tika Gary Chief Complaint: Dizziness Ramya Graff is a 54 years old woman with past medical history significant for type 2 diabetes mellitus on Mounjaro injection (last dost ), hyperlipidemia and hypertension presents to the emergency department complaining of dizziness: Spinning sensation that started last night. It is trigger position changes or head movements. Associated symptoms she reported nausea and vomiting. She also complained of generalized headache. She denied focal weakness, loss of consciousness, shortness on breath, chest pain, sore throat, ear pain cough, fever, chills, abdominal pain or diarrhea. She denied history of dizziness or tinnitus. She drinks alcohol very occasionally. Denied tobacco smoking, marijuana consumption or illicit drug use. In the ED, tcness found to have stable vital signs. Blood workup was remarkable for leukocytosis. Hemoglobin is 12.0 and platelets 294. CMP showed hypokalemia, 3.1. There are no significant electrolyte imbalances. Glucose is 203. Renal infarction are normal. ECG showed normal sinus rhythm without ischemic changes (HR 86 bpm). ED tx: Zofran 4 mg IV, LR 2 L bolus Valium 5 mg IV, ketorolac 15 mg IV, Reglan 10 mg IV Review of Systems Review of Systems: All 12 systems were reviewed and normal except as noted in HPI. [facility] Medical History Type II diabetes mellitus Hyperlipidemia Hypertension Family History Father No problems noted. Father No problems noted. 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 Sexual orientation: Straight/Heterosexual Meds Allergies Allergy/AdvReac Type Severity Reaction Status Date / Time No Known Allergies Allergy Verified 04/20/25 01:44 Active Medications: Current Medications Acetaminophen (Acetaminophen 325 Mg Tablet) 650 mg PO Q6H PRN PRN Reason: Pain, Mild 1-3,fever,headache Atorvastatin Calcium (Atorvastatin Calcium 80 Mg Tablet) 80 mg PO DAILY SHELLEY Calcium Carbonate (Calcium Carbonate 750 Mg Tab.Chew) 750 mg PO Q4H PRN PRN Reason: Heartburn Magnesium Hydroxide (Milk Of Magnesia 30 Ml Oral.Susp) 30 ml PO DAILY PRN PRN Reason: Constipation Meclizine HCl (Meclizine Hcl 25 Mg Tablet) 25 mg PO TID SHELLEY Melatonin (Melatonin 3 Mg Tablet) 6 mg PO BEDTIME PRN PRN Reason: Insomnia Metoprolol Succinate (Metoprolol Succinate Er 100 Mg Tab.Er.24h) 100 mg PO DAILY SHELLEY; Protocol Non-Formulary Medication (Propylene Glycol [Systane Complete]) 1 drop EYE-BOTH BID PRN PRN Reason: Dry Eyes Potassium Chloride (Potassium Chloride Packet 20 Meq Packet) 40 meq PO ONCE STA Stop: 04/20/25 11:17 Prochlorperazine Edisylate (Prochlorperazine Edisylate 10 Mg/2 Ml Vial) 10 mg IVPUSH Q6H SHELLEY Sertraline HCl (Sertraline Hcl 100 Mg Tablet) 100 mg PO DAILY [facility] Sodium Chloride (0.9 % Sodium Chloride Flush 3 Ml Syringe) 3 ml IVFLUSH QSHIFT SHELLEY Last Admin: 04/20/25 08:40 Dose: Not Given Home Medications ?Medication ?Instructions ?Recorded ?Confirmed ?Last Taken ?Type lancets 28 gauge (FreeStyle 08/03/20 09/23/20 Unknown History Lancets) atorvastatin 80 mg tablet 80 mg PO DAILY 04/01/25 04/20/25 04/19/25 History metoprolol succinate 100 mg 100 mg PO DAILY 04/01/25 04/20/25 04/19/25 History tablet,extended release 24 hr sertraline 100 mg tablet 100 mg PO DAILY 04/01/25 04/20/25 04/19/25 History propylene glycol 0.6 % eye drops 1 drp ophthalmic (eye) BID PRN Dry 04/20/25 04/20/25 04/19/25 History (Systane Complete) Eyes telmisartan 80 1 tab PO DAILY 04/20/25 04/20/25 04/19/25 History mg-hydrochlorothiazide 25 mg tablet tirzepatide 7.5 mg/0.5 mL 7.5 mg subcut TH 04/20/25 04/20/25 04/17/25 History subcutaneous pen injector (Mounjaro) Physical Exam Vital Signs and Narrative: Vital Signs: Last Vital Signs Temp 98.0 F 04/20/25 10:16 Pulse 96 04/20/25 10:16 Resp 202 H 04/20/25 10:16 BP 102/55 L 04/20/25 10:16 Pulse Ox 98 04/20/25 10:16 O2 Del Method Room Air 04/20/25 10:16 BMI result Body Mass Index 42.1 Constitutional - Awake and Alert, No apparent distress HEENT - PERRL, EOMI Heart - RRR, No murmurs Lungs - Normal lung expansion, Normal respiratory effort, No respiratory distress, CTA bilaterally Heart - NT / ND; +BS; No rebound or guarding Extremities - no calf tenderness bilaterally, no swelling Musculoskeletal - Normal inspection, normal ROM Skin - Warm/Dry Neurological - Alert & oriented x3. Moving all extremities spontaneously. No facial droop. Normal speech. Left gaze nystagmus Psychological - Appropriate affect Results Labs 04/20/25 01:51 04/20/25 01:51 Labs: Laboratory Results - last 24 hr 04/20/25 01:51 MCV 78.2 L MCH 25.9 L MCHC 33.1 RDW 16.3 H Plt Count 294 MPV 9.3 L Immature Gran % (Auto) 0.4 Neut % (Auto) 47.9 Lymph % (Auto) 42.7 H [place] % (Auto) 6.4 Eos % (Auto) 2.3 Baso % (Auto) 0.3 Lymph # (Auto) 5.8 H [place] # (Auto) 0.9 Eos # (Auto) 0.3 Baso # (Auto) 0.0 Abs Immat Gran (auto) 0.05 H Absolute Neuts (auto) 6.5 Absolute Nucleated RBC 0.000 Nucleated RBC % (auto) 0.0 Smear Tech's Comments VERIFIED Anion Gap 14 Estim Creat Clear Calc 80.6 Estimated GFR > 60 Random Glucose 203 H Calcium 8.7 D Total Bilirubin 0.2 Direct Bilirubin < 0.2 AST 21 ALT 22 Alkaline Phosphatase 95 Total Protein 6.8 Albumin 3.8 Assessment and Plan (1) Nystagmus due to benign paroxysmal positional vertigo: Status: Acute (2) Headache: Qualifiers: Headache type: unspecified Headache chronicity pattern: acute headache Status: Acute Plan Ramya Graff is a 54 y/o woman presents with: Intractable vertigo, likely BPPV. Observation under hospitalist service. Symptoms control with Antivert and antiemetics. Received LR 2 L bolus. Brain MRI ordered by ED. PT evaluation - Margot maneuver. Hyperlipidemia. Continue atorvastatin. Essential hypertension. Continue metoprolol and ARB. Hold hydrochlorothiazide to avoid dehydration. Low-salt diet. Type 2 diabetes mellitus. BG checks before meals at bedtime. Diabetic diet. She is on Mounjaro (last dose ). Insulin sliding scale. Obesity, BMI 42.1 kg/m2. She has been using Mounjaro injection for the last 2 months and have and has lost 10 lb so far. DVT prophylaxis: Lovenox Code status: Full Quality Stroke Does the patient have a stroke diagnosis?: No VTE Prior VTE?: No VTE Risk Level:: Medical - moderate - high VTE Device Contraindication: N/A - Device Ordered VTE Drug Contraindication: Treatment Not Indicated
[2025-04-20] MEDS: Potassium Chloride Packet 20 MEQ PACKET 40 MEQ PO (11:40)
--- NOTE | 2025-04-20 12:33 | PC.NURSE ---
pt medicated per MAR - awaiting MRI and inpatient bes assignment
[2025-04-20 13:02] LABS: Glucose, Whole Blood 61 mg/dL (60-115)
[2025-04-20] MEDS: 0.9 % Sodium Chloride Flush 3 ML SYRINGE IVFLUSH ×2 (15:26→23:55)
--- NOTE | 2025-04-20 16:43 | PC.NURSE ---
pt taken MRI via stretcher by ED transport
[2025-04-20 17:37] LABS: Glucose, Whole Blood 92 mg/dL (60-115)
--- NOTE | 2025-04-20 18:21 | PC.NURSE ---
pt returned from MRI- pt oob to BR with ax1- no c/o dizziness at this time. pm SSI held d/t FSBS 91. pt awaiting bed assignment. pt offers no complaints at this time
[2025-04-20 21:20] LABS: Glucose, Whole Blood 134 mg/dL (60-115)
--- NOTE | 2025-04-20 22:28 | PC.NURSE ---
pt transferred into hospital bed. pt reports that her dizziness has improved, sts that she believes medication is helping with her dizziness. pt awaiting med tele room assignment. pt offers no complaints at this time
[2025-04-21 06:00] VITALS: BP 126/81; PULSE 91; RESP 16; TEMP 36.3; O2SAT 100
--- NOTE | 2025-04-21 07:06 | PC.NURSE ---
Oncoming RN, Gutierrez and TW completed bedside safe start. PIN not working for oncoming RN. Full report given.
[2025-04-21 08:15] LABS: Glucose, Whole Blood 176 mg/dL (60-115)
[2025-04-21] MEDS: 0.9 % Sodium Chloride Flush 3 ML SYRINGE IVFLUSH (08:21)
[2025-04-21 09:12] LABS: Glucose, Whole Blood 98 mg/dL (60-115)
[2025-04-21 09:39] VITALS: BP 126/81; PULSE 91; O2SAT 100
[2025-04-21 09:45] VITALS: BP 126/81; PULSE 70
[2025-04-21] MEDS: Metoprolol Succinate ER 100 MG TAB.ER.24H PO (09:45)
--- NOTE | 2025-04-21 11:10 | PM.DS ---
DS: Providers Provider Date of Service: 04/21/25 Date of admission: 04/20/25 07:30 Date of discharge: 04/21/25 Primary care physician: Betsy Peraza MD Attending physician on discharge: Itzel Pereira Discharging clinician: Itzel Pereira DS: Diagnosis Discharge Diagnosis (1) Nystagmus due to benign paroxysmal positional vertigo: Status: Acute (2) Headache: Status: Acute DS: Summary Hospital Course Hospital Course: HPI:54 years old woman with past medical history significant for type 2 diabetes mellitus on Mounjaro injection (last dost ), hyperlipidemia and hypertension presents to the emergency department complaining of dizziness: Spinning sensation that started last night. It is trigger position changes or head movements. Associated symptoms she reported nausea and vomiting. She also complained of generalized headache. She denied focal weakness, loss of consciousness, shortness on breath, chest pain, sore throat, ear pain cough, fever, chills, abdominal pain or diarrhea. She denied history of dizziness or tinnitus. She drinks alcohol very occasionally. Denied tobacco smoking, marijuana consumption or illicit drug use. In the ED, shortness found to have stable vital signs. Blood workup was remarkable for leukocytosis. Hemoglobin is 12.0 and platelets 294. CMP showed hypokalemia, 3.1. There are no significant electrolyte imbalances. Glucose is 203. Renal infarction are normal. ECG showed normal sinus rhythm without ischemic changes (HR 86 bpm). ED tx: Zofran 4 mg IV, LR 2 L bolus Valium 5 mg IV, ketorolac 15 mg IV, Reglan 10 mg IV. hospital course: 54 y/o woman presents admitted for :Intractable vertigo, possible likely BPPV: Symptoms improved with iv hydration,Antivert and antiemetics PT evaluation - Margot maneuver- which seems to be improved with the above supportive care. Currently asymptomatic. MRI:No acute findings.Mild low-lying cerebellar tonsils measuring 3 mm below the foramen magnum, consistent with tonsillar ectopia. d/w neurology about above MRI findings-currently no acute intervention, follow up out patiently . Pt recomended she will benefit from outpatient PT referral for vestibular rehab. Hypokalemia repleted and resolved. Essential hypertension. Continue metoprolol and ARB. Continue hydrochlorothiazide(since p.o. intake and hydration seems to be improving). plan: patient symptoms seems possible sec to bppv : seems to be improved with ot mauver.continue meclizine -limited supply given mri shows -cerebellar tonsillar ectopia-patient is to follow-up with PCP and consider outpatient follow-up with Neurology. hypokalemia -repleced and resolved. ,josé miguel nick outpatient with pcp. Above management discussed with the patient in detail length she understand and in agreement with the above plan, time spent 40 minutes . All question answered, staff was present during conversation. Time Attestation Total time managing care of this patient today: 40 mintues. Discharge Coordination Time (in mins): 40 min Quality: Safe Use of Opioids Does Pt have an Active Cancer Diagnosis on the Problem List?: No Quality: Stroke Does the patient have a stroke diagnosis?: No Physical Exam Vital Signs: Vital Signs: Last Vital Signs Temp 97.3 F 04/21/25 06:00 Pulse 70 04/21/25 09:45 Resp 16 04/21/25 06:00 BP 126/81 04/21/25 09:45 Pulse Ox 100 04/21/25 09:39 O2 Del Method Room Air 04/21/25 06:00 BMI result Body Mass Index 42.1 Appearance: Alert.? Oriented X3.? cvs: rrr, [id number] , no murmur res: clear to auscultation ,no rhonchii or wheezing abd: no rebound or guarding ,nt, bs present. ext pulses present , no cyanosis. neuro: axo3 , nonfocal. DS: Data Data Completed and Pending Labs on day of discharge: Laboratory Results - last 24 hr 04/20/25 04/20/25 04/20/25 01:46 12:57 17:32 POC Glucose 176 H 61 92 04/20/25 04/21/25 21:16 08:00 POC Glucose 134 H 98 Imaging Chest x-ray: Radiologist's impression: mri: No acute findings. Mild low-lying cerebellar tonsils measuring 3 mm below the foramen magnum, consistent with tonsillar ectopia. Discharge Plan Discharge Anticipated Discharge Date/Time: 04/21/25 11:02 Patient Disposition: Home, Self-Care Discharge Diagnosis: dizziness Referrals: Physical Therapy - [facility] [Outside] - 1 Week Betsy Peraza MD [Primary Care Provider, Internal Medicine] - 1 Week Discharge Medications: New meclizine 25 mg Tablet 25 mg PO TID PRN (Reason: dizziness) Qty: 10 0RF Continued (DME) lancets [FreeStyle Lancets] 28 gauge misc topical DAILY telmisartan-hydrochlorothiazid 80-25 mg tablet 1 tab PO DAILY Systane Complete 0.6 % Drops 1 drp OPHTHALMIC (EYE) BID PRN (Reason: Dry Eyes) Mounjaro 7.5 mg/0.5 mL pen injector 7.5 mg subcut TH metoprolol succinate 100 mg tablet extended release 24 hr 100 mg PO DAILY sertraline 100 mg tablet 100 mg PO DAILY atorvastatin 80 mg tablet 80 mg PO DAILY Discharge Orders: Discharge Order (Routine); Ordered 04/21/25 Ordered By: Itzel Pereira Diet: Advance to usual diet Activity on Discharge: As tolerated Stand Alone Forms: Patient Portal Discharge page Print Language: Bahraini Other Ambulatory Orders: Basic Metabolic Panel (Routine) Timeframe: 1 Week Facility: [facility] - Location: Laboratory Ordered By: Itzel Pereira Care Plan Goals: as below. Health Concerns: patient symptoms seems possible sec to bppv : seems to be improved with ot mauver.continue meclizine -limited supply given mri shows -cerebellar tonsillar ectopia-patient is to follow-up with PCP and consider outpatient follow-up with Neurology. hypokalemia -repleced and resolved. ,josé miguel nick outpatient with pcp. Plan of Treatment: As above. Assessment: As above.
[2025-04-21] MEDS: Potassium Chloride ER 20 MEQ TAB.ER.PRT PO (11:41)
[2025-04-21 12:19] LABS: Potassium 4.0 mmol/L (3.3-5.1)
[2025-04-21 12:49] VITALS: BP 142/89; PULSE 78; RESP 16; TEMP 36; O2SAT 97
--- NOTE | 2025-04-21 13:52 | MHC.CM.PN ---
PT CLEARED TO DC HOME TODAY WITH NO SERVICES VIA PRIVATE TRANSPORT
== END 2025-04-21 12:56 | disposition home or self-care (01) ==
LOC: HO.ED 07:42 → HO.EDOVER 07:51 → HO.IMC 04-21 07:59 → HO.EDOVER 04-21 10:44
PROVIDERS: Internal Medicine; Admitting Provider Physician Assistant Medical; Emergency Provider Emergency Medicine; PCP Internal Medicine; Visit Provider Internal Medicine
DX: R42 Dizziness and giddiness (principal); R51.9 Headache, unspecified; E87.6 Hypokalemia; E78.5 Hyperlipidemia, unspecified; R11.2 Nausea with vomiting, unspecified; E66.9 Obesity, unspecified; E11.9 Type 2 diabetes mellitus without complications; Z68.41 Body mass index [BMI] 40.0-44.9, adult; Z79.899 Other long term (current) drug therapy
CPT/HCPCS: 36415; 70551; 80048; 80076; 82947; 84132; 84484; 85025; 93005; 96361; 96372; 96374; 96375; 96376; 97161; 99222; 99285; J0737; J1650; J1885; J2405; J2765; J3360; J7120

== ENCOUNTER → 2025-04-20 01:40 | Outpatient (BNV) | payer OTHER, SELFPAY | PROVIDERS: Admitting Provider Physician Assistant Medical; Emergency Provider Emergency Medicine; PCP Internal Medicine; Visit Provider Internal Medicine Cardiovascular Disease | DX: R42 Dizziness and giddiness (principal); R07.9 Chest pain, unspecified | CPT/HCPCS: 93010 ==

== ENCOUNTER 2025-04-20 07:30 | Outpatient (BNV) | payer OTHER, SELFPAY | END 2025-04-20 07:37 | PROVIDERS: Admitting Provider Physician Assistant Medical; Emergency Provider Emergency Medicine; PCP Internal Medicine; Visit Provider Radiology Diagnostic Radiology | DX: R42 Dizziness and giddiness (principal) | CPT/HCPCS: 70551 ==

== ENCOUNTER → 2025-04-20 07:30 | Outpatient (BNV) | payer OTHER, SELFPAY | PROVIDERS: Admitting Provider Physician Assistant Medical; Emergency Provider Emergency Medicine; PCP Internal Medicine; Visit Provider Internal Medicine | DX: R51.9 Headache, unspecified (principal); H81.10 Benign paroxysmal vertigo, unspecified ear | CPT/HCPCS: 99223; 99239 ==

== ENCOUNTER 2025-04-22 08:32 | Outpatient (AMB) | payer OTHER, SELFPAY ==
--- OUTSIDE RECORDS SUMMARY | 2025-04-22 08:38 | XMS_ITS | Patient Health Record ---
Author Organization [facility] Address [address] [place] [address] Care Team Providers Care Public Transportation Inspector Name Role Phone Betsy Peraza Primary Care [...] Problem Status W/U Status Risk Notes Problem [id number] Colon cancer screening (Z12.11) Active confirmed Problem [id number] Encounter for other preprocedural examination (Z01.818) Active confirmed Plan Of Treatment Future Test Test Name Order Date COLONOSCOPY 07/24/2020 Insurance Providers Payer Name Payer Address Payer Phone Subscriber Number Group Number Insured Name Patient Relationship to Insured Coverage Start Date Coverage End Date [facility] [address] [address] [place], [place] [id number] AB MORENO Self - patient is the insured Medical (General) History Medical History History ICD Code type II diabetes hyperlipidemia hypertension elevated BMI Surgical History Surgery Date(Month/Year) section
[2025-04-22 08:40] VITALS: BMI 43.4
--- NOTE | 2025-04-22 08:40 | MHC.OFFVIS ---
Vital Signs 04/22/25 08:40 Height 5 ft Weight 222 lb BMI 43.4 Intake Visit Reasons: Inj- Left knee Gel-One Intake Note: Ramya is a 54 year old female who presents today for a left knee Gel-One injection. She describes her left knee pain as sharp in nature. She has had cortisone injections in the past which gave her minimal relief. She has failed the last 3 months of conservative treatment. She wishes to hold off on surgery if at all possible. She has not had a viscosupplementation injection. Allergies No Known Allergies Allergy (Verified 04/22/25 08:40) Medication List - Last Reconciled 04/22/25 by Reece Seay MD atorvastatin 80 mg PO DAILY lancets (FreeStyle Lancets) meclizine 25 mg PO TID PRN metoprolol succinate ER 100 mg PO DAILY propylene glycol 0.6% (Systane Complete) 1 drp ophthalmic (eye) BID PRN sertraline 100 mg PO DAILY telmisartan-hydrochlorothiazid 80-25 mg 1 tab PO DAILY tirzepatide (Mounjaro) 7.5 mg subcut TH [facility] Medical History Type II diabetes mellitus Hyperlipidemia Hypertension Surgical History Hx of cataract surgery History of section Family History Father No problems noted. Father No problems noted. 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 Sexual orientation: Straight/Heterosexual Physical Exam Vital Signs: BMI result Body Mass Index 43.4 Const Other: Well-nourished well-developed very friendly female awake alert and oriented x3 in no acute distress Extrem Other: Bilateral lower extremity examination shows good capillary refill, no skin lesions noted, normal sensation light touch Left knee examination shows a minimal effusion, palpable crepitus with range of motion, pain with of motion, no instability Office Procedures AMB Joint Injection/Aspiration Joint Injection/Aspiration Primary Site: left knee Prep: site was prepped using aseptic technique Injected: with 3 mL of (Gel One viscosupplementation) and 1% plain lidocaine Procedure: The patient tolerated the procedure well Coding 53118 - Large joint Procedure code (CPT) selection complete Results Reviewed Results Reviewed: X-rays of the patient's left knee taken previously show joint space narrowing, subchondral sclerosis, no acute bony abnormalities Assessment & Plan Assessment & Plan (1) Osteoarthritis of left knee: Code(s): M17.12 - Unilateral primary osteoarthritis, left knee Category: Medical Plan Ms. Graff presents with left knee pain due to osteoarthritis. The risks and benefits of a Gel One viscosupplementation injection were discussed at length with the patient. The patient wished to proceed. She tolerated the injection well. She will continue with her home exercise program. She will contact me prior to her follow-up appointment in 3 months should any questions or concerns arise. Feel free to call me at any time should questions regarding her orthopedic management arise. I spent 20 minutes in reviewing the patient's records and imaging studies, seeing the patient and documenting in the medical record. Orders: Orders AMB Joint Injection/Aspiration Today M17.12 - Unilateral primary osteoarthritis, left knee Coding Level of Care Code Est Pt Level 3 (63202) Complex EM visit Add On G2211 Diagnoses Osteoarthritis of left knee M17.12 CPT Codes Coding - 31902 Large joint: 54735 - Large joint ([id number])
== END 2025-04-22 09:00 | disposition home or self-care (01) ==
LOC: HO.HOS 08:33
PROVIDERS: Visit Provider Orthopaedic Surgery
DX: M17.12 Unilateral primary osteoarthritis, left knee (principal)
CPT/HCPCS: 20610; 99213

== ENCOUNTER → 2025-04-22 08:32 | Outpatient (BNVA) | payer OTHER, SELFPAY | PROVIDERS: Visit Provider Orthopaedic Surgery | DX: M17.12 Unilateral primary osteoarthritis, left knee (principal); E11.9 Type 2 diabetes mellitus without complications; E78.5 Hyperlipidemia, unspecified; I10 Essential (primary) hypertension | CPT/HCPCS: 20610; J2003; J7326 ==

== ENCOUNTER 2025-06-11 09:01 | Outpatient (RCR) | payer OTHER, SELFPAY ==
[2025-06-11 09:05] VITALS: BP 123/78; PULSE 72
--- NOTE | 2025-06-11 12:14 | MHC.PT.EP ---
[facility] [place] [facility] [place] Office [place] Office [address] Yumi La [address] [phone] F: [phone] F: [phone] F: [phone] F: [phone] Physical Therapy Plan of Care Date of Evaluation: 06/11/25 Date of Surgery: Diagnosis: Vertigo right side Assessment: Pt is a pleasant 54yo F who presents to PT with dizziness. She reports her last episode of spinning was ~1 month ago and she has been performing maneuvers at home. Upon assessment, she is negative for B posterior and horizontal canal BPPV. Her balance assessment was normal and she did not have any dizziness or instability. She scored a 23/24 on dynamic gait index (1 point deducted as pt used railing on stairs initially; with cueing she was able to perform without railings). She ambulates independently and safely. At this time, no PT indicated as pt is negative for BPPV and does not have signs or symptoms of vestibular hypofunction. I discussed with pt that I will leave her chart open for 30 days and to call and schedule an appointment if she has any recurrence of symptoms, pt verbalized understanding Frequency and Duration: The patient will be seen 2x/week for 4 weeks Short Term Goals: Pt will continue to test negative for BPPV Pt will get in/out of bed without dizziness or instability consistently Nursing Home Goals: Pt will tolerate laying flat without dizziness or instability Pt will perform bed mobility without dizziness or instability Pt will ambulate with head turns without dizziness or instability Treatment Plan: Modalities to reduce pain, spasms and effusion. Manual therapy to restore motion and function. Therapeutic exercise to improve strength and flexibility. Neuromuscular re-education for posture and balance. Therapeutic activities to return to functional activities of daily living. Electronically signed by: Dorene Veloz, PT, DPT Please sign and return to therapist. Thank you for your referral.
--- NOTE | 2025-08-14 08:37 | MHC.PT.DC ---
[facility] [place] Office [place] Office [place] Office [address] Yumi La [address] [phone] F: [phone] F: [phone] F: [phone] F: [phone] Physical Therapy Discharge Report Diagnosis: Vertigo right side Date of Surgery: Date of Evaluation: 06/11/25 Date of Discharge: 08/14/25 Treatments to Date: 1 Cancellations to Date: No Shows to Date: Discharge Status: Discharge Summary: Pt was evaluated on 06/11/25. She was negative for BPPV and her chart was left open for 30 days incase she had any recurrence of symptoms. Pt is being D/C from skilled PT as she has not attended or called to schedule in 30 days. Please see assessment from initial PT evaluation below: Pt is a pleasant 54yo F who presents to PT with dizziness. She reports her last episode of spinning was ~1 month ago and she has been performing maneuvers at home. Upon assessment, she is negative for B posterior and horizontal canal BPPV. Her balance assessment was normal and she did not have any dizziness or instability. She scored a 23/24 on dynamic gait index (1 point deducted as pt used railing on stairs initially; with cueing she was able to perform without railings). She ambulates independently and safely. At this time, no PT indicated as pt is negative for BPPV and does not have signs or symptoms of vestibular hypofunction. I discussed with pt that I will leave her chart open for 30 days and to call and schedule an appointment if she has any recurrence of symptoms, pt verbalized understanding . Electronically signed by: Dorene Hampton, PT, DPT Please sign and return to therapist. Thank you for your referral.
== END 2025-08-14 08:37 | disposition home or self-care (01) ==
LOC: HO.PT 09:01
PROVIDERS: PCP Internal Medicine; Visit Provider Internal Medicine
DX: R42 Dizziness and giddiness (principal)
CPT/HCPCS: 97161

== ENCOUNTER 2025-07-14 09:27 | Outpatient (REF) | payer OTHER, SELFPAY ==
[2025-07-14 10:10] LABS: Hemoglobin A1C 147.9421 umol/L; Total Hemoglobin (HGBA1C) 3360.4987 umol/L
--- OUTSIDE RECORDS SUMMARY | 2025-07-14 10:41 | XMS_ITS | Patient Health Record ---
Author Organization [facility] Address [address] [place] [address] Care Team Providers Care Experience Specialist Name Role Phone Betsy Peraza Primary Care Provider Unavailab Pablo Conroy Jr Unavailable [phone] Reason For Referral No Information Medications Medication [...] Problem Status W/U Status Risk Notes Problem [id number] Colon cancer screening (Z12.11) Active confirmed Problem [id number] Encounter for other preprocedural examination (Z01.818) Active confirmed Plan Of Treatment Future Test Test Name Order Date COLONOSCOPY 07/24/2020 Insurance Providers Payer Name Payer Address Payer Phone Subscriber Number Group Number Insured Name Patient Relationship to Insured Coverage Start Date Coverage End Date [facility] [address] [address] [place], [place] [id number] AB MORENO Self - patient is the insured Medical (General) History Medical History History ICD Code type II diabetes hyperlipidemia hypertension elevated BMI Surgical History Surgery Date(Month/Year) section
--- OUTSIDE RECORDS SUMMARY | 2025-07-14 10:41 | XMS_ITS | Clinical Summary ---
Author Organization [facility] Address [address] [place] [address] Phone Care Team Providers Care Wide Area Network Administrator Name Role Phone Betsy Peraza MD Primary Care Provider Social History Tobacco Use Types Packs/Day Years Used Date Smoking Tobacco: Never Assessed Education Answer Date Recorded Are you interested in more education? Not on berna e 02/03/2023 Are you concerned about learning? Not on file 02/03/2023 No 02/03/2023 No 02/03/2023 Digital Access Answer Date Recorded No 03/04/2023 No 03/04/2023 No 03/04/2023 Reliable internet access at home? Not on file 03/04/2023 Device with a working camera? Not on file Comments Unknown Sex and Gender Information Value Date Recorded Sex Assigned at Not on file Legal Sex Female 5:26 PM EDT Gender Identity Not on file Sexual Orientation Not on file Plan of Treatment Health Maintenance Due Date Last Done Comments Adult Td,Tdap Booster 1970 LIPID PANEL 1970 DEPRESSION SCREENING 1982 SMOKING Hx and SMOKELESS TOB ACCO SCREENING 1983 HEPATITIS C SCREENING 1988 HIV ONE-TIME SCREENING (18-6 5 YEARS) 1988 PAP SMEAR 1991 MAMMOGRAM 2010 COLOGUARD 2015 COLONOSCOPY 2015 COLORECTAL CANCER SCREENING 2015 FIT TEST 2015 FOBT 2015 SIGMOIDOSCOPY 2015 VIRTUAL COLONOSCOPY 2015 PNEUMOCOCCAL VACCINES (50+ y ears) (1 of 1 - PCV) 2020 ZOSTER VACCINES (1 of 2) 2020 INFLUENZA VACCINE (#1) 2025 08/13/2020 COVID-19 VACCINE (2 - 2024-2 6 season) 2025 02/01/2021 HEPATITIS A VACCINES Aged Out No long er eligible based on patient's age to complete this topic HIB VACCINES Aged Out No longer eligi ble based on patient's age to complete this topic MENINGOCOCCAL VACCINES (ACWY) Aged Out No longer eligible based on patient's age to complete this topic MENINGOCOCCAL VACCINES (B) Aged Out N o longer eligible based on patient's age to complete this topic Medical Devices Not on file Insurance Seevibes O [employer] Se[employer]es O Se[employer]ibes [facility] Se[facility] O [facility] Care Teams Wide Area Network Administrator Relationship Specialty Start Date End Date Betsy Peraza MD [address] [place] [address] [place] [id number] PCP - General 02/18/20 Additional Source Comments The information contained in this document represents components of the legal health record. It is not the complete legal health record.[facility]
[2025-07-14 10:44] LABS: Alanine Aminotransferase 19 U/L (0-31); Albumin Level 4.0 g/dL (3.5-5.0); Alkaline Phosphatase 81 U/L (39-117); Anion Gap 10 (12-20); Aspartate Amino Transferase 21 U/L (5-31); Blood Urea Nitrogen 7 mg/dL (9-16); Calcium 9.2 mg/dL (8.4-10.2); Carbon Dioxide 29 mmol/L (22-29); Chloride 107 mmol/L (96-108); Estimated Glomerular Filt Rate > 60; Potassium 3.9 mmol/L (3.3-5.1); Sodium 142 mmol/L (135-145); Total Protein 7.1 g/dL (6.5-8.0)
== END 2025-07-14 09:28 | disposition home or self-care (01) ==
LOC: HO.LAB 09:27
PROVIDERS: PCP Internal Medicine; Visit Provider Internal Medicine
DX: I10 Essential (primary) hypertension (principal); E11.9 Type 2 diabetes mellitus without complications; E78.00 Pure hypercholesterolemia, unspecified; Z68.41 Body mass index [BMI] 40.0-44.9, adult
CPT/HCPCS: 36415; 80053; 83036